=== PATIENT | female | born 1950 | race Caucasian/White ===

== ENCOUNTER 2024-03-25 18:02 | Inpatient (IN) ==
--- NOTE | 2024-03-25 18:56 | XRay Report ---
XR chest 1V portable CLINICAL HISTORY: Dyspnea. COMPARISON STUDY: No previous studies for comparison. FINDINGS: Lung volumes are normal. Lungs are clear. There is no pneumothorax or pleural effusion. The heart is mildly enlarged. Mediastinal contours are normal. There is no evidence for pulmonary edema. IMPRESSION: No acute cardiopulmonary findings. Cardiomegaly. ACT 112: Negative or not required by law. Electronically signed by: Caleb Barry M.D. 03/25/2024 6:55 PM
--- NOTE | 2024-03-25 19:08 | Emergency Department Note ---
Impression & Plan Acute renal failure, SOB (shortness of breath), CHF (congestive heart failure), Acute UTI (urinary tract infection), Sepsis, Acute hyperkalemia, Cellulitis ED Provider Note NAME: GAUDENCIO CROW AGE: 73 SEX: Female INFORMANT: Patient and friends ED PROVIDER(S): Winston Mccormack MD CHIEF COMPLAINT: Shortness of breath PLAN: Disposition: Admitted Outpatient prescription management: none Referral: None MEDICAL DECISION MAKING: Patient presented complaining of shortness of breath. On physical examination she had swelling of the lower extremities and there was concerning for developing cellulitis. Overall the patient was pleasant and in no respiratory stress. She had a slight increased work of breathing. She was doing well with nasal cannula oxygen. Chest imaging showed some cardiomegaly but no evidence of pneumonia. Patient's ECG was nonischemic. Ultrasound imaging of the legs revealed no evidence of DVT. Patient was found to have a marked leukocytosis of 27,000. Procalcitonin was elevated. Lactate was normal. Patient did have a urinalysis concerning for infection. Chemistry panel reveals hyperkalemia and acute renal failure with a creatinine over 8. Patient was treated with IV calcium, insulin, glucose, and bicarbonate. Patient was reassessed. No peaked T waves on ECG. Patient has no known history of this per her accounts. Patient was gently hydrated due to the acute kidney injury. Patient also has findings concerning for CHF with elevated troponin and BNP. She was not aggressively bolused due to this issue and the fact that she has no evidence of septic shock. She was treated with cefepime and vancomycin. Vences catheter was placed. CT imaging of the abdomen pelvis was ordered. Patient will need further evaluation and management in the hospital. [facility], Dr. Cruz. Patient was evaluated in the ER and admitted for further management Care/management discussed with: manager health Level of care consideration(s): After review of the information above and other included data, I feel the patient requires escalation of care to admission Triage Nursing notes: reviewed and agree them. Vital Signs: reviewed and remarkable for borderline tachycardia Additional History obtained from: Patient's friends noted that she is not doing well over the last several days but has had symptoms for several months. Chronic Medical/Social Conditions affecting care: Lack of primary care Prior/ Outside/ External records reviewed: none Differential Diagnosis: Infection, dehydration, metabolic abnormality, hypo/hyperglycemia, electrolyte disturbance, anemia, hypoxia, cardiac sources, intracerebral event, toxicologic, neurologic, as well as other pathologies. Diagnostics, independently interpreted by me: ECG: Twelve-lead ECG reveals sinus tachycardia with a right axis at 103 bpm. No evidence of ST elevation. No peaked T waves. Cardiac Monitoring: Cardiac monitoring ordered by me: The patient was placed on continuous cardiac monitoring and observed. It revealed a normal sinus rhythm at 99 beats per minute without ectopy or evidence of dysrhythmia. Medical decision rules: none Imaging studies: Chest x-ray reveals cardiomegaly without infiltrate. Ultrasound imaging is negative for DVT. I refer you to the EMR for further details. HPI: 73 year old Female arrives for evaluation of SOB. This started a few months ago and is worsening. The patient also notes the following associated symptoms, nausea, upper abd pain, lower leg swelling and pain. The patient has been prescribed no medication for relieving factors. Current pain is rated as 10/10. Tried tylenol without relief. Pt denies LOC, headache, fevers, chills, diaphoresis, visual changes, neck pain, chest pain, vomiting, back pain, melena, hematochezia, urinary symptoms, numbness, lymphadenopathy, rash, or other complaints. . PAST MEDICAL HISTORY: See Below, hypothyroid PAST SURGICAL HISTORY: See Below, SOCIAL HISTORY: See Below, non-smoker HOME MEDICATIONS: See Below ALLERGIES: See Below VITALS: See Below PHYSICAL EXAMINATION: GENERAL: Awake, alert, uncomfortable-appearing, in no distress HENT: Normocephalic, atraumatic. Oropharynx unremarkable. EYES: Normal conjunctiva. Sclera non-icteric. NECK: Inspection normal. Non-tender. Supple. No nuchal rigidity. FROM. No masses. RESPIRATORY: Clear to auscultation. No wheezes. No rales. Normal respiratory effort. CARDIAC: Borderline tachy rate. Normal rhythm. No murmurs. No rubs. Extremities warm and well perfused. Pulses equal. No JVD. GI: Soft, non-distended. No tenderness to palpation. No rebound or guarding. No masses. RECTAL: Deferred. MUSCULOSKELETAL: Atraumatic. Chest examination reveals no tenderness. The back is symmetrical on inspection without obvious abnormality. There is no CVA tenderness to palpation. No joint edema. LOWER EXTREMITIES: Calves are equal size bilaterally and non-tender. 3+ edema. Erythematous discoloration. NEURO: Normal sensorium. No sensory or motor deficits noted. SKIN: No rash or jaundice noted. PROCEDURES: none CRITICAL CARE: I have personally spent 50 minutes of critical care time in the direct management of this patient. This includes bedside care, interpretation of diagnostic studies, and testing, discussion with consultants, patient, and family members, and other required patient management activities. These minutes are in excess of all separately billable procedures. OBSERVATION NOTE: none Past Med/Surg History Problem List (Updated 03/26/24 @ 02:12 by Winston Mccormack MD) Cellulitis (Acute) Acute hyperkalemia (Acute) Sepsis (Acute) Acute UTI (urinary tract infection) (Acute) CHF (congestive heart failure) (Acute) Acute renal failure (Acute) SALLY (acute kidney injury) SOB (shortness of breath) (Acute) Social History Smoking Status: Never smoker Second Hand Exposure: No; Do You Dip or Chew Tobacco: No; Tobacco Cessation Education Requested by Patient: No Hx Alcohol Use: No Hx Substance Use: No Preferred Language: Estonian Communication Ability: Effective 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 Beliefs That Will Affect Care: None Current Living Situation: Alone Other Information That Helps Us Care for You: No Feels Safe at Home: Yes Safety Concerns: Feels Safe At This Time Assistive Devices: Walker Allergies Allergies Allergy/AdvReac Type Severity Reaction Status Date / Time Penicillins Allergy Unknown Verified 03/26/24 00:59 Results & Data (ED) Vital Signs Vital Signs - 24 hr 03/25/24 18:12 03/25/24 18:12 03/25/24 18:12 Temperature 36.9 C Temperature Source Oral Pulse Rate 103 H Pulse Rate [Right Finger] Pulse Rhythm Regular Pulse Rhythm [Right Finger] Pulse Strength Normal Pulse Strength [Right Finger] Respiratory Rate 24 Respiratory Effort / Characteristics Non-Labored Non-Labored Respiratory Depth Normal Normal Respiratory Pattern Regular Blood Pressure 100/64 Blood Pressure [Right Arm] Blood Pressure Mean 76 Blood Pressure Mean [Right Arm] Blood Pressure Position Lying Blood Pressure Position [Right Arm] Pulse Oximetry 100 81 L Oxygen Delivery Method Room Air Nasal Cannula Room Air Nasal Cannula Oxygen Flow Rate 2 0 Sepsis Recent Fever Within 48 Hours No Sepsis New/Unexplained Change in Mental Status N/A Sepsis Action Taken by Nursing No Action Required Oxygen Flow Rate - Titration 2 Pulse Oximetry Post Tiitration 100 03/25/24 18:12 03/25/24 18:19 03/25/24 18:55 Temperature Temperature Source Pulse Rate 102 H 102 H Pulse Rate [Right Finger] 101 H Pulse Rhythm Regular Pulse Rhythm [Right Finger] Regular Pulse Strength Pulse Strength [Right Finger] Normal Respiratory Rate 22 24 Respiratory Effort / Characteristics Non-Labored Respiratory Depth Normal Respiratory Pattern Regular Blood Pressure Blood Pressure [Right Arm] 116/46 L Blood Pressure Mean Blood Pressure Mean [Right Arm] 69 Blood Pressure Position Blood Pressure Position [Right Arm] Lying Pulse Oximetry 99 100 Oxygen Delivery Method Room Air Nasal Cannula Oxygen Flow Rate 2 Sepsis Recent Fever Within 48 Hours Sepsis New/Unexplained Change in Mental Status Sepsis Action Taken by Nursing Oxygen Flow Rate - Titration Pulse Oximetry Post Tiitration 03/25/24 21:19 Temperature Temperature Source Pulse Rate Pulse Rate [Right Finger] 99 H Pulse Rhythm Pulse Rhythm [Right Finger] Regular Pulse Strength Pulse Strength [Right Finger] Normal Respiratory Rate 23 Respiratory Effort / Characteristics Non-Labored Respiratory Depth Normal Respiratory Pattern Regular Blood Pressure Blood Pressure [Right Arm] 130/112 H Blood Pressure Mean Blood Pressure Mean [Right Arm] 118 Blood Pressure Position Blood Pressure Position [Right Arm] Lying Pulse Oximetry 100 Oxygen Delivery Method Room Air Oxygen Flow Rate Sepsis Recent Fever Within 48 Hours Sepsis New/Unexplained Change in Mental Status Sepsis Action Taken by Nursing Oxygen Flow Rate - Titration Pulse Oximetry Post Tiitration Laboratory Data 03/25/24 19:23 03/26/24 01:09 Lab Results 03/25/24 03/25/24 03/25/24 Range/Units 19:05 19:21 19:23 WBC 27.81 H (4.8-10.8) K/ul RBC 3.14 L (4.20-5.40) M/uL Hgb 9.6 L (12.0-16.0) g/dl Hct 31.7 L (37.0-47.0) % MCV 101.0 H (80.0-100.0) fL MCH 30.6 (25.0-34.0) pg MCHC 30.3 L (32.0-36.0) g/dL RDW Std Deviation 57.9 H (36.4-46.3) fL RDW Coeff of [place] 15.6 H (11.5-14.5) % Plt Count 191 (130-400) K/uL MPV 10.3 (9.4-12.4) fL Immature Gran % (Auto) 1.1 % Neut % (Auto) 72.5 % Lymph % (Auto) 0.9 % [place] % (Auto) 25.2 % Eos % (Auto) 0.0 % Baso % (Auto) 0.3 % Neut # (Auto) 20.16 H (1.40-6.50) K/uL Lymph # (Auto) 0.25 L (1.20-3.40) K/uL [place] # (Auto) 7.01 H (0.11-0.59) K/uL Eos # (Auto) 0.01 (0.00-0.50) K/uL Baso # (Auto) 0.07 (0.00-0.20) K/uL Immature Gran # (Auto) 0.31 H (0.01-0.20) K/uL Sodium 136 (136-145) mmol/L Potassium 6.9 H* (3.5-5.1) mmol/L Chloride 114 H (98-107) mmol/L Carbon Dioxide 10 L (21-32) mmol/L Anion Gap 12 H (3-11) BUN 153 H (6-23) mg/dl Creatinine 8.45 H* (0.6-1.2) mg/dl Est Cr Clr Drug Dosing 7.4 ml/min Est GFR ( Amer) 4.8 ml/min Est GFR (Non-Af Amer) 4.2 ml/min BUN/Creatinine Ratio 18.1 (10-20) Glucose 133 H (70-99(Fasting)) mg/dl Lactate 1.5 (0.4-2.0) mmol/L Calcium 8.5 L (8.6-10.3) mg/dl Magnesium 1.3 L (1.7-2.4) mg/dl Total Bilirubin 0.7 (0.2-1.0) mg/dl AST 7 L (13-39) U/L ALT 6 L (7-52) U/L Alkaline Phosphatase 49 (34-104) U/L Troponin I High Sens 16.2 H (0-14) pg/ml B-Natriuretic Peptide 104 H (0-100) pg/ml Total Protein 7.0 (6.0-8.3) gm/dl Albumin 3.6 (3.4-5.0) gm/dl Globulin 3.4 (2.5-4.0) gm/dl Albumin/Globulin Ratio 1.1 (0.9-2) Procalcitonin 1.07 H (0-0.5) ng/ml Adenovirus (PCR) Not Detected (NotDetected) B. pertussis DNA (PCR) Not Detected (NotDetected) B.parapertussis DNA PCR Not Detected (NotDetected) C. pneumoniae DNA (PCR) Not Detected (NotDetected) Coronavirus OC43 (PCR) Not Detected (NotDetected) Coronavirus HKU1 (PCR) Not Detected (NotDetected) Coronavirus 229E (PCR) Not Detected (NotDetected) SARS-CoV-2 (PCR) Not Detected (NotDetected) Coronavirus NL63 (PCR) Not Detected (NotDetected) Human Metapneumovir PCR Not Detected (NotDetected) Influenza Type A (PCR) Not Detected (NotDetected) Influenza Type B (PCR) Not Detected (NotDetected) M. pneumoniae (PCR) Not Detected (NotDetected) Parainfluenza 1 (PCR) Not Detected (NotDetected) Parainfluenza 2 (PCR) Not Detected (NotDetected) Parainfluenza 3 (PCR) Not Detected (NotDetected) Parainfluenza 4 (PCR) Not Detected (NotDetected) RSV (PCR) Not Detected (NotDetected) Entero/Rhino (PCR) Not Detected (NotDetected) Administered Medications Sodium Bicarbonate 150 meq/ (Dextrose) 1,150 mls @ 125 mls/hr IV .[id number] ARMANDO Stop: 04/24/24 21:59 Last Admin: 03/25/24 22:50 Dose: 125 mls/hr Documented By: SHB Aztreonam 2,000 mg/ Dextrose 100 mls @ 100 mls/hr IV ONE ONE Stop: 03/26/24 02:29 Last Admin: 03/26/24 01:46 Dose: 100 mls/hr Documented By: KAILEY Discontinued Medications Dextrose (Dextrose 50% 50 Ml Syringe) 50 ml IV NOW ONE Stop: 03/25/24 21:02 Last Admin: 03/25/24 21:50 Dose: 50 ml Documented By: ZAHIDA Acetaminophen (Ofirmev) 1,000 mg in 100 mls @ 400 mls/hr IV NOW STA Stop: 03/25/24 19:23 Last Infusion: 03/25/24 20:01 Dose: Infused Documented By: Admin: 03/25/24 19:15 Dose: 400 mls/hr Documented By: THAI Cefepime HCl (Maxipime) 2,000 mg in 20 mls @ 5 mls/min IV NOW STA; Protocol Stop: 03/25/24 20:17 Last Admin: 03/25/24 21:13 Dose: 5 mls/min Documented By: JOSUÉ Vancomycin HCl 2,750 mg/ (Sodium Chloride) 555 mls @ 200 mls/hr IV NOW ONE Stop: 03/25/24 23:00 Last Infusion: 03/26/24 00:04 Dose: Infused Documented By: Admin: 03/25/24 21:17 Dose: 200 mls/hr Documented By: JOSUÉ Calcium Gluconate () 1,000 mg in 60 mls @ 240 mls/hr IV NOW STA Stop: 03/25/24 21:15 Last Infusion: 03/25/24 22:19 Dose: Infused Documented By: Admin: 03/25/24 21:52 Dose: 240 mls/hr Documented By: ZAHIDA Ertapenem 500 mg/ Syringe 5 mls @ 2 mls/min IV Q[facility]H [facility] Stop: 04/02/24 00:33 Last Admin: 03/26/24 01:36 Dose: Not Given Documented By: KAILEY Insulin Human Regular (Novolin-R Insulin Per Unit Charge) 10 units IV NOW STA Stop: 03/25/24 21:02 Last Admin: 03/25/24 21:44 Dose: 10 units Documented By: ZAHIDA Co-signed By: THAI Miscellaneous Information (Patient's Allergy Info Needs Entered) 1 each N/A ONE STA Stop: 03/25/24 23:37 Last Admin: 03/26/24 00:37 Dose: 1 each Documented By: KAILEY Sodium Bicarbonate (Sodium Bicarb 8.4% Inj 50 Meq/50 Ml Syr) 50 meq IV NOW STA Stop: 03/25/24 21:02 Last Admin: 03/25/24 21:50 Dose: 50 meq Documented By: ZAHIDA Sodium Zirconium Cyclosilicate (Sodium Zirconium Cyclosilicate 10 Gm Packet) 10 gm PO NOW STA Stop: 03/25/24 21:59 Last Admin: 03/25/24 22:20 Dose: 10 gm Documented By: [facility] Imaging Data Radiologist's Impression: Chest X-Ray 03/25/24 18:13 XR chest 1V portable CLINICAL HISTORY: Dyspnea. COMPARISON STUDY: No previous studies for comparison. FINDINGS: Lung volumes are normal. Lungs are clear. There is no pneumothorax or pleural effusion. The heart is mildly enlarged. Mediastinal contours are normal. There is no evidence for pulmonary edema. IMPRESSION: No acute cardiopulmonary findings. Cardiomegaly. ACT 112: Negative or not required by law. Electronically signed by: Caleb Barry M.D. 03/25/2024 6:55 PM Venous Doppler Study 03/25/24 19:10 Exam(s): US VENOUS BILATERAL LOWER EXTREMITIES EXAM: US Duplex Bilateral Lower Extremities Veins CLINICAL HISTORY: Reason for exam: severe swelling, SOB. TECHNIQUE: Real-time duplex ultrasound scan of the bilateral lower extremity veins integrating B-mode two-dimensional vascular structure, Doppler spectral analysis, color flow Doppler imaging and compression. COMPARISON: No relevant prior studies available. FINDINGS: Right deep veins: Unremarkable. The visualized deep veins of the right lower extremity are compressible with color flow. No visualized thrombus. Right superficial veins: Unremarkable. Left deep veins: Unremarkable. The visualized deep veins of the left lower extremity are compressible with color flow. No visualized thrombus. Left superficial veins: Unremarkable. Soft tissues: No acute findings. IMPRESSION: No DVT within the bilateral lower extremities. Electronically signed by: Hebert Harley MD 03/25/24 22:56 PM Abdomen/Pelvis CT 03/25/24 21:03 Exam(s): CT ABDOMEN + PELVIS Without Contrast EXAM: CT Abdomen and Pelvis Without Intravenous Contrast CLINICAL HISTORY: Reason for exam: ARF. TECHNIQUE: Axial computed tomography images of the abdomen and pelvis without intravenous contrast. CTDI is 36.67 mGy and DLP is 1660.69 mGy-cm. Automated exposure control was utilized for the study. A dose lowering technique was utilized adhering to the principles of ALARA. COMPARISON: No relevant prior studies available. FINDINGS: ABDOMEN: Liver: Unremarkable. Gallbladder and bile ducts: Unremarkable. Pancreas: Unremarkable. Spleen: Unremarkable. Adrenals: Left adrenal adenoma measuring 2.6 x 1.8 cm. Right adrenal is unremarkable. Kidneys and ureters: Nonobstructing nephrolithiasis bilaterally. No ureteral stone or obstructive uropathy. Stomach and bowel: Unremarkable. PELVIS: Appendix: No findings to suggest acute appendicitis. Bladder: Vences catheter within the bladder. Bladder is decompressed. Reproductive: Unremarkable as visualized. ABDOMEN and PELVIS: Intraperitoneal space: Unremarkable. No free air. No significant fluid collection. Bones/joints: Advanced degenerative changes within the lumbar spine. Soft tissues: Fat-containing umbilical hernia. Vasculature: Aortobiiliac atherosclerotic calcifications. Lymph nodes: Unremarkable. IMPRESSION: 1. Nonobstructing nephrolithiasis bilaterally. No ureteral stone or obstructive uropathy. 2. Vences catheter within the bladder. Bladder is decompressed. 3. Fat-containing umbilical hernia. Electronically signed by: Hebert Harley MD 03/26/24 00:25 AM Discharge Plan Visit Data Chief Complaint: Shortness of Breath/Dyspnea ED Provider: Winston Mccormack Discharge Problem: Acute renal failure, SOB (shortness of breath), CHF (congestive heart failure), Acute UTI (urinary tract infection), Sepsis, Acute hyperkalemia, Cellulitis Patient Disposition: Admitted As Inpatient Discharge Instructions Interventions: ED Discharge Assessment Last Done: 03/25/24 20:42
[2024-03-25] MEDS: ACETAMINOPHEN 1,000 MG/100 ML VIAL IV STA (19:15)
[2024-03-25 20:11] LABS: Hematocrit (blood only) 31.7 % (37.0-47.0); Hemoglobin 9.6 g/dl (12.0-16.0); Mean Corpuscular Hemoglobin 30.6 pg (25.0-34.0); Mean Corpuscular Hgb Conc 30.3 g/dL (32.0-36.0); Mean Platelet Volume 10.3 fL (9.4-12.4); Platelet Count 191 K/uL (130-400); RDW Coefficient of Variation 15.6 % (11.5-14.5); RDW Standard Deviation 57.9 fL (36.4-46.3); Red Blood Count 3.14 M/uL (4.20-5.40); White Blood Count 27.81 K/ul (4.8-10.8)
[2024-03-25 20:13] LABS: Adenovirus PCR Not Detected (NotDetected); Bordetella parapertussis PCR Not Detected (NotDetected); Bordetella pertussis PCR Not Detected (NotDetected); Chlamydia pneumoniae PCR Not Detected (NotDetected); Coronavirus 229E PCR Not Detected (NotDetected); Coronavirus CoV-2 (COVID19)PCR Not Detected (NotDetected); Coronavirus HKU1 PCR Not Detected (NotDetected); Coronavirus NL63 PCR Not Detected (NotDetected); Coronavirus OC43PCR Not Detected (NotDetected); Human Metapneumovirus PCR Not Detected (NotDetected); Influenza A PCR Not Detected (NotDetected); Influenza B PCR Not Detected (NotDetected); Mycoplasma pneumoniae PCR Not Detected (NotDetected); Parainfluenza Virus 1 PCR Not Detected (NotDetected); Parainfluenza Virus 2 PCR Not Detected (NotDetected); Parainfluenza Virus 3 PCR Not Detected (NotDetected); Parainfluenza Virus 4 PCR Not Detected (NotDetected); Respiratory Syncytial VirusPCR Not Detected (NotDetected); Rhinovirus/Enterovirus PCR Not Detected (NotDetected)
[2024-03-25] MEDS ORDERED: VANCOMYCIN CONSULT ACTIVE PRN (20:14)
[2024-03-25 20:28] LABS: Basophils # (auto) 0.07 K/uL (0.00-0.20); Basophils % (auto) 0.3 %; Eosinophils # (auto) 0.01 K/uL (0.00-0.50); Immature Granulocytes # (auto) 0.31 K/uL (0.01-0.20); Immature Granulocytes % (auto) 1.1 %; Lymphocytes # (auto) 0.25 K/uL (1.20-3.40); Lymphocytes % (auto) 0.9 %; Monocytes # (auto) 7.01 K/uL (0.11-0.59); Monocytes % (auto) 25.2 %; Neutrophils # (auto) 20.16 K/uL (1.40-6.50); Neutrophils % (auto) 72.5 %
[2024-03-25 20:41] LABS: Albumin Globulin Ratio 1.1 (0.9-2); Albumin Level 3.6 gm/dl (3.4-5.0); Bilirubin,Total 0.7 mg/dl (0.2-1.0); Calcium 8.5 mg/dl (8.6-10.3); Creatinine Clr Calc Pharmacy 7.4 ml/min; Est GFR (African American) 4.8 ml/min; Est GFR (Non-African American) 4.2 ml/min; Globulin 3.4 gm/dl (2.5-4.0); Magnesium 1.3 mg/dl (1.7-2.4); Potassium 6.9 mmol/L (3.5-5.1); Troponin I High Sensitivity 16.2 pg/ml (0-14)
[2024-03-25 20:47] LABS: BUN Creatinine Ratio 18.1 (10-20)
[2024-03-25] MEDS: CEFEPIME 2,000 MG/20 ML VIAL IV STA (21:13)
[2024-03-25] MEDS: VANCOMYCIN HCL 2,750 MG in SODIUM CHLORIDE 0.9% 500 ML IV ONE (21:17)
[2024-03-25] MEDS: NovoLIN-R INSULIN PER UNIT CHARGE IV STA (21:44)
[2024-03-25] MEDS: DEXTROSE 50% 50 ML SYRINGE IV ONE (21:50)
[2024-03-25] MEDS: SODIUM BICARB 8.4% INJ 50 MEQ/50 ML SYR IV STA (21:50)
[2024-03-25] MEDS: CALCIUM GLUCONATE 1,000 MG/60 ML BAG IV STA (21:52)
[2024-03-25] MEDS: SODIUM ZIRCONIUM CYCLOSILICATE 10 GM PACKET PO STA (22:20)
--- NOTE | 2024-03-25 22:37 | History & Physical Report ---
Date of Service March 25, 2024 Assessment & Plan (1) SALLY (acute kidney injury): Plan: 73-year-old female with past medical history significant for morbid obesity, hypertension and hypothyroidism comes because of shortness of breath and lower extremity edema and found to have SALLY and hyperkalemia. Patient states since last 1 months she is getting short of breath which is progressively worsening. And last 6 months having lower extremity edema and also pain in the legs. She is living with her sister for last 14 years. She ambulates with a cane and sister thinks she may need walker. She goes to primary care doctor once a year for regular checkup and medication refills but last time she saw PCP was more than a year ago. Sister states she is on levothyroxine and olmesartan and they do not know the doses but sister says she can call tomorrow to give the doses. And patient uses Tylenol for pain and per her sister patient uses Tums frequently but does not use any other medications. Patient is alert and oriented. In the ER her was oxygen saturation varying low 90s and 80s and on 2 L she saturating okay. Seems comfortable. She always have headaches. She is feeling lightheaded lately. Vision is okay. No earache or runny nose or sore t hroat. No cough. Afebrile. No difficulty swallowing. Denies any chest pain. Was nauseous earlier. No abdominal pain. Normal bowel movements. Micturating okay per patient. Denies any blood in the urine. Denies blood in the stools. SALLY Creatinine 8.4 BUN 153 Mental status okay We do not have baseline labs Patient on olmesartan which will be held patient states she is micturating ok s/p jenkins Will follow CT abdomen pelvis Started on fluids D5 water with 150 meq of sodium bicarb with rate of 125 mill per hour Recheck labs Follow UA Nephro consulted and notified close monitor in PCU Hyperkalemia Potassium 6.9 EKG okay Received insulin and dextrose and calcium gluconate in the ER Starting on bicarb drip as above Starting on Lokelma Close monitoring telemetry Follow repeat labs closely - received another dose of insulin , dextrose and amandeep gluconate when 1am labs showed k 6.6 Dialysis or further management per nephrology Metabolic acidosis Mostly from SALLY Will follow VBG Started on bicarb drip Follow labs. Shortness of breath Hypoxia Chest x-ray looks okay. Respiratory bio fire negative Possible from current illness and obesity Will follow lower extremity Doppler We will follow echo can consider v/q scan Continue oxygen supplementation Possible lower EXTR cellulitis and UTI Leukocytosis with WBC of 27. Procalcitonin 1.07 Received Vanco in the ER Will continue with Dapto and Azactam(PCN allergy) Follow the cultures Follow the response Lower EXTR edema Will follow-up lower EXTR Doppler Will follow echo Hypertension Seems on olmesartan which will be held for SALLY Will place on labetalol as needed and monitor Hypothyroidism On Synthyroid Sister says she will call tomorrow and let us know the dosage Will check TSH Morbid obesity Possible underlying sleep apnea Sleep study as outpatient Nocturnal pulse ox study Anemia Hemoglobin 9.6 MCV 101 Follow-up stool for Hemoccult Iron studies Vitamin B12 folate levels Follow repeat labs Hypomagnesia Will replace gave iv mag 1gm x 2 placed on mag oxide for 5days follow labs MIld elevation of troponin Mostly from demand ischemia and SALLY Will follow serial enzymes and echo DVT prophylaxis SCDs for now If no procedure planned will place on heparin subcu Disposition Telemetry CODE STATUS full code as per my discussion with the patient History of Present Illness Chief Complaint: Shortness of breath Primary Care Provider: Tami Storey 73-year-old female with past medical history significant for morbid obesity, hypertension and hypothyroidism comes because of shortness of breath and lower extremity edema and found to have SALLY and hyperkalemia. Patient states since last 1 months she is getting short of breath which is progressively worsening. And last 6 months having lower extremity edema and also pain in the legs. She is living with her sister for last 14 years. She ambulates with a cane and sister thinks she may need walker. She goes to primary care doctor once a year for regular checkup and medication refills but last time she saw PCP was more than a year ago. Sister states she is on levothyroxine and olmesartan and they do not know the doses but sister says she can call tomorrow to give the doses. And patient uses Tylenol for pain and per her sister patient uses Tums frequently but does not use any other medications. Patient is alert and oriented. In the ER her was oxygen saturation varying low 90s and 80s and on 2 L she saturating okay. Seems comfortable. She always have headaches. She is feeling lightheaded lately. Vision is okay. No earache or runny nose or sore throat. No cough. Afebrile. No difficulty swallowing. Denies any chest pain. Was nauseous earlier. No abdominal pain. Normal bowel movements. Micturating okay per patient. Denies any blood in the urine. Denies blood in the stools. Past medical history. As mentioned above Past surgical history. Appendectomy and tonsillectomy Social history. Quit smoking 22 years ago. Smoked 2 packs a day for more than 20 years. Quit alcohol 22 years ago. Family history. Father had heart disease. Disease from thoracic aneurysm. Mother had bladder cancer. Allergies Allergy/AdvReac Type Severity Reaction Status Date / Time NSAIDS (Non-Steroidal Allergy Unknown Unknown - Unverified 03/26/24 08:25 Anti-Inflamma On file w/ [facility] pharmacy Penicillins Allergy Unknown Verified 03/26/24 08:25 Home Medications Medication Instructions Recorded Confirmed Type levothyroxine 88 mcg tablet 88 mcg PO DAILY 03/26/24 03/26/24 History olmesartan 40 mg tablet 40 mg PO DAILY 03/26/24 03/26/24 History Past Med/Surg History Problem List (Updated 03/26/24 @ 02:12 by Winston Mccormack MD) Cellulitis (Acute) Acute hyperkalemia (Acute) Sepsis (Acute) Acute UTI (urinary tract infection) (Acute) CHF (congestive heart failure) (Acute) Acute renal failure (Acute) SALLY (acute kidney injury) SOB (shortness of breath) (Acute) Social History Smoking Status: Never smoker Second Hand Exposure: No; Do You Dip or Chew Tobacco: No; Tobacco Cessation Education Requested by Patient: No Hx Alcohol Use: No Hx Substance Use: No Preferred Language: Indian Communication Ability: Effective [employer] Required: No Beliefs That Will Affect Care: None Current Living Situation: Alone Other Information That Helps Us Care for You: No Feels Safe at Home: Yes Safety Concerns: Feels Safe At This Time Assistive Devices: Walker Review of Systems Review of Systems: All systems reviewed & are unremarkable except as noted in HPI & below Physical Exam Physical Exam: General- Not in acute distress Head- atraumatic Eyes- PERRL. ENT- oropharynx clear Neck- supple, no JVD Lungs- clear to auscultation , no wheezing or crackles Heart- regular rate and rhythm; no murmur, no gallop. Abdomen- normal bowel sounds, soft, nontender, no distension Extremities- b/l gross lower extremity edema present with distal erythema and superficial skin ulcers. Neuro- alert, oriented x 3; PERRL, no facial palsy; no dysarthria; moves extremities. Results & Data Results & Data Vital Signs (Past 12 Hours) Vital Signs Temp Pulse Pulse Resp BP BP Pulse Ox 03/25/24 22:09 108 H 03/25/24 21:19 99 H 23 130/112 H 100 03/25/24 18:55 102 H 24 100 03/25/24 18:19 102 H 03/25/24 18:12 101 H 22 116/46 L 99 03/25/24 18:12 81 L 03/25/24 18:12 36.9 C 103 H 24 100/64 100 03/25/24 18:12 O2 Del Method O2 Flow Rate 03/25/24 22:09 03/25/24 21:19 Room Air 03/25/24 18:55 Nasal Cannula 2 03/25/24 18:19 03/25/24 18:12 Room Air 03/25/24 18:12 Room Air, Nasal Cannula 0 03/25/24 18:12 Nasal Cannula 2 03/25/24 18:12 Room Air Diagnostic Findings Laboratory Results WBC 27.81 K/ul (4.8-10.8) H 03/25/24 19:23 RBC 3.14 M/uL (4.20-5.40) L 03/25/24 19:23 Hgb 9.6 g/dl (12.0-16.0) L 03/25/24 19:23 Hct 31.7 % (37.0-47.0) L 03/25/24 19:23 MCV 101.0 fL (80.0-100.0) H 03/25/24 19:23 MCH 30.6 pg (25.0-34.0) 03/25/24 19: MCHC 30.3 g/dL (32.0-36.0) L 03/25/24 19:23 RDW Std Deviation 57.9 fL (36.4-46.3) H 03/25/24 19:23 RDW Coeff of Morro 15.6 % (11.5-14.5) H 03/25/24 19:23 Plt Count 191 K/uL (130-400) 03/25/24 19:23 MPV 10.3 fL (9.4-12.4) 03/25/24 19:23 Immature Gran % (Auto) 1.1 % 03/25/24 19:23 Neut % (Auto) 72.5 % 03/25/24 19:23 Lymph % (Auto) 0.9 % 03/25/24 19:23 Wagoner % (Auto) 25.2 % 03/25/24 19:23 Eos % (Auto) 0.0 % 03/25/24 19:23 Baso % (Auto) 0.3 % 03/25/24 19:23 Neut # (Auto) 20.16 K/uL (1.40-6.50) H 03/25/24 19:23 Lymph # (Auto) 0.25 K/uL (1.20-3.40) L 03/25/24 19:23 Wagoner # (Auto) 7.01 K/uL (0.11-0.59) H 03/25/24 19:23 Eos # (Auto) 0.01 K/uL (0.00-0.50) 03/25/24 19:23 Baso # (Auto) 0.07 K/uL (0.00-0.20) 03/25/24 19:23 Immature Gran # (Auto) 0.31 K/uL (0.01-0.20) H 03/25/24 19:23 Sodium 136 mmol/L (136-145) 03/25/24 19:23 Potassium 6.9 mmol/L (3.5-5.1) H* 03/25/24 19:23 Chloride 114 mmol/L (98-107) H 03/25/24 19:23 Carbon Dioxide 10 mmol/L (21-32) L 03/25/24 19:23 Anion Gap 12 (3-11) H 03/25/24 19:23 BUN 153 mg/dl (6-23) H 03/25/24 19:23 Creatinine 8.45 mg/dl (0.6-1.2) H* 03/25/24 19:23 Est Cr Clr Drug Dosing 7.4 ml/min 03/25/24 19:23 Est GFR ( Amer) 4.8 ml/min 03/25/24 19:23 Est GFR (Non-Af Amer) 4.2 ml/min 03/25/24 19:23 BUN/Creatinine Ratio 18.1 (10-20) 03/25/24 19:23 Glucose 133 mg/dl (70-99(Fasting)) H 03/25/24 19:23 Lactate 1.5 mmol/L (0.4-2.0) 03/25/24 19:21 Calcium 8.5 mg/dl (8.6-10.3) L 03/25/24 19:23 Magnesium 1.3 mg/dl (1.7-2.4) L 03/25/24 19:23 Total Bilirubin 0.7 mg/dl (0.2-1.0) 03/25/24 19:23 AST 7 U/L (13-39) L 03/25/24 19:23 ALT 6 U/L (7-52) L 03/25/24 19:23 Alkaline Phosphatase 49 U/L (34-104) 03/25/24 19:23 Troponin I High Sens 16.2 pg/ml (0-14) H 03/25/24 19:23 B-Natriuretic Peptide 104 pg/ml (0-100) H 03/25/24 19:23 Total Protein 7.0 gm/dl (6.0-8.3) 03/25/24 19:23 Albumin 3.6 gm/dl (3.4-5.0) 03/25/24 19:23 Globulin 3.4 gm/dl (2.5-4.0) 03/25/24 19:23 Albumin/Globulin Ratio 1.1 (0.9-2) 03/25/24 19:23 Procalcitonin 1.07 ng/ml (0-0.5) H 03/25/24 19:21 Adenovirus (PCR) Not Detected (NotDetected) 03/25/24 19:05 B. pertussis DNA (PCR) Not Detected (NotDetected) 03/25/24 19:05 B.parapertussis DNA PCR Not Detected (NotDetected) 03/25/24 19:05 C. pneumoniae DNA (PCR) Not Detected (NotDetected) 03/25/24 19:05 Coronavirus OC43 (PCR) Not Detected (NotDetected) 03/25/24 19:05 Coronavirus HKU1 (PCR) Not Detected (NotDetected) 03/25/24 19:05 Coronavirus 229E (PCR) Not Detected (NotDetected) 03/25/24 19:05 SARS-CoV-2 (PCR) Not Detected (NotDetected) 03/25/24 19:05 Coronavirus NL63 (PCR) Not Detected (NotDetected) 03/25/24 19:05 Human Metapneumovir PCR Not Detected (NotDetected) 03/25/24 19:05 Influenza Type A (PCR) Not Detected (NotDetected) 03/25/24 19:05 Influenza Type B (PCR) Not Detected (NotDetected) 03/25/24 19:05 M. pneumoniae (PCR) Not Detected (NotDetected) 03/25/24 19:05 Parainfluenza 1 (PCR) Not Detected (NotDetected) 03/25/24 19:05 Parainfluenza 2 (PCR) Not Detected (NotDetected) 03/25/24 19:05 Parainfluenza 3 (PCR) Not Detected (NotDetected) 03/25/24 19:05 Parainfluenza 4 (PCR) Not Detected (NotDetected) 03/25/24 19:05 RSV (PCR) Not Detected (NotDetected) 03/25/24 19:05 Entero/Rhino (PCR) Not Detected (NotDetected) 03/25/24 19:05 Impressions Chest X-Ray 03/25/24 18:13 XR chest 1V portable CLINICAL HISTORY: Dyspnea. COMPARISON STUDY: No previous studies for comparison. FINDINGS: Lung volumes are normal. Lungs are clear. There is no pneumothorax or pleural effusion. The heart is mildly enlarged. Mediastinal contours are normal. There is no evidence for pulmonary edema. IMPRESSION: No acute cardiopulmonary findings. Cardiomegaly. ACT 112: Negative or not required by law. Electronically signed by: Caleb Barry M.D. 03/25/2024 6:55 PM ECG Additional Comments: ECG. Sinus tachycardia rate of 103. No acute ST changes seen. Code Status & VTE Plan VTE Prophylaxis Plan VTE Prophylaxis will be ordered: Yes
[2024-03-25] MEDS: SODIUM BICARBONATE 8.4% 150 MEQ in DEXTROSE 5% 1,000 ML IV SCH (22:50)
--- NOTE | 2024-03-25 22:57 | Ultrasound Report ---
Exam(s): US VENOUS BILATERAL LOWER EXTREMITIES EXAM: US Duplex Bilateral Lower Extremities Veins CLINICAL HISTORY: Reason for exam: severe swelling, SOB. TECHNIQUE: Real-time duplex ultrasound scan of the bilateral lower extremity veins integrating B-mode two-dimensional vascular structure, Doppler spectral analysis, color flow Doppler imaging and compression. COMPARISON: No relevant prior studies available. FINDINGS: Right deep veins: Unremarkable. The visualized deep veins of the right lower extremity are compressible with color flow. No visualized thrombus. Right superficial veins: Unremarkable. Left deep veins: Unremarkable. The visualized deep veins of the left lower extremity are compressible with color flow. No visualized thrombus. Left superficial veins: Unremarkable. Soft tissues: No acute findings. IMPRESSION: No DVT within the bilateral lower extremities. Electronically signed by: Hebert Harley MD 03/25/24 22:56 PM
[2024-03-25 23:58] LABS: Appearance Urine Turbid (Clear); Bacteria Urine Automated 4+ (None Seen); Bilirubin Urine Negative (Negative); Blood Urine 3+ (Negative); Color Urine Yellow; Epithelial Cell Urine Auto 0-2 /hpf (0-2); Glucose Urine UA Negative (Negative); Ketones Urine Trace (Negative); Leukocyte Esterase Urine 3+ (Negative); Nitrite Urine Negative (Negative); Protein Urine 2+ (Negative); RBC Urine Automated >20 /hpf (0-2); Specific Gravity Urine 1.017 (1.000-1.030); Urobilinogen Urine Negative (Negative); WBC Urine Automated >50 /hpf (0-5)
--- NOTE | 2024-03-26 00:26 | CT Scan Report ---
Exam(s): CT ABDOMEN + PELVIS Without Contrast EXAM: CT Abdomen and Pelvis Without Intravenous Contrast CLINICAL HISTORY: Reason for exam: ARF. TECHNIQUE: Axial computed tomography images of the abdomen and pelvis without intravenous contrast. CTDI is 36.67 mGy and DLP is 1660.69 mGy-cm. Automated exposure control was utilized for the study. A dose lowering technique was utilized adhering to the principles of ALARA. COMPARISON: No relevant prior studies available. FINDINGS: ABDOMEN: Liver: Unremarkable. Gallbladder and bile ducts: Unremarkable. Pancreas: Unremarkable. Spleen: Unremarkable. Adrenals: Left adrenal adenoma measuring 2.6 x 1.8 cm. Right adrenal is unremarkable. Kidneys and ureters: Nonobstructing nephrolithiasis bilaterally. No ureteral stone or obstructive uropathy. Stomach and bowel: Unremarkable. PELVIS: Appendix: No findings to suggest acute appendicitis. Bladder: Vences catheter within the bladder. Bladder is decompressed. Reproductive: Unremarkable as visualized. ABDOMEN and PELVIS: Intraperitoneal space: Unremarkable. No free air. No significant fluid collection. Bones/joints: Advanced degenerative changes within the lumbar spine. Soft tissues: Fat-containing umbilical hernia. Vasculature: Aortobiiliac atherosclerotic calcifications. Lymph nodes: Unremarkable. IMPRESSION: 1. Nonobstructing nephrolithiasis bilaterally. No ureteral stone or obstructive uropathy. 2. Vences catheter within the bladder. Bladder is decompressed. 3. Fat-containing umbilical hernia. Electronically signed by: Hebert Harley MD 03/26/24 00:25 AM
[2024-03-26] MEDS ORDERED: NITROGLYCERIN SL 0.4 MG/TAB TAB SL PRN (00:34)
[2024-03-26] MEDS ORDERED: POLYETHYLENE (MIRALAX) 17 GM PACK PO PRN (00:34)
[2024-03-26] MEDS: Patient's ALLERGY Info needs ENTERED STA (00:37)
[2024-03-26] MEDS: ERTAPENEM SODIUM 500 MG in SYRINGE 0 ML IV SCH (01:36)
[2024-03-26] MEDS: AZTREONAM 2,000 MG in DEXTROSE 5% MINI-B 100 ML IV ONE (01:46)
[2024-03-26 01:56] LABS: Calcium 8.4 mg/dl (8.6-10.3); Creatinine Clr Calc Pharmacy 8.1 ml/min; Est GFR (African American) 5.4 ml/min; Est GFR (Non-African American) 4.6 ml/min; Potassium 6.6 mmol/L (3.5-5.1)
[2024-03-26 02:06] LABS: BUN Creatinine Ratio 19.9 (10-20)
[2024-03-26] MEDS: INSULIN HUMAN REGULAR PER UNIT 10 UNITS in SYRINGE 9.9 ML IV ONE (02:28)
[2024-03-26] MEDS: DEXTROSE 50% 50 ML SYRINGE IV STA (02:29)
[2024-03-26] MEDS: CALCIUM GLUCONATE 1,000 MG/60 ML BAG IV STA (02:29)
[2024-03-26 02:36] LABS: Base Excess VBG -14.4 mEq/L; HCO3 VBG 13 mmol/L; Oxygen Saturation VBG < 60.0 %; PCO2 VBG 32 mmHg (38-50); PO2 VBG 22 mmHg
[2024-03-26] MEDS: MAGNESIUM SULFATE / D5W 1 GM/100 ML BAG IV SCH ×2 (02:49→09:47)
[2024-03-26] MEDS: SODIUM ZIRCONIUM CYCLOSILICATE 10 GM PACKET PO SCH (05:53)
[2024-03-26 06:18] LABS: Hematocrit (blood only) 25.6 % (37.0-47.0); Hemoglobin 8.2 g/dl (12.0-16.0); Mean Corpuscular Hemoglobin 31.1 pg (25.0-34.0); Mean Platelet Volume 10.5 fL (9.4-12.4); Platelet Count 174 K/uL (130-400); RDW Coefficient of Variation 14.9 % (11.5-14.5); RDW Standard Deviation 53.1 fL (36.4-46.3); Red Blood Count 2.64 M/uL (4.20-5.40); White Blood Count 25.41 K/ul (4.8-10.8)
[2024-03-26 06:33] LABS: Calcium 8.3 mg/dl (8.6-10.3); Magnesium 1.6 mg/dl (1.7-2.4); Potassium 5.9 mmol/L (3.5-5.1)
[2024-03-26 06:44] LABS: Basophils # (auto) 0.08 K/uL (0.00-0.20); Basophils % (auto) 0.3 %; Eosinophils # (auto) 0.06 K/uL (0.00-0.50); Eosinophils % (auto) 0.2 %; Immature Granulocytes # (auto) 0.17 K/uL (0.01-0.20); Immature Granulocytes % (auto) 0.7 %; Lymphocytes # (auto) 0.87 K/uL (1.20-3.40); Lymphocytes % (auto) 3.4 %; Monocytes # (auto) 6.83 K/uL (0.11-0.59); Monocytes % (auto) 26.9 %; Neutrophils % (auto) 68.5 %; RBC Morphology Unremarkable
[2024-03-26 06:54] LABS: Creatinine Clr Calc Pharmacy 8.4 ml/min; Est GFR (African American) 5.6 ml/min; Est GFR (Non-African American) 4.8 ml/min; Thyroid Stimulating Hormone 1.54 uIu/ml (0.300-4.500); Troponin I High Sensitivity 22.9 pg/ml (0-14); Uric Acid 10.3 mg/dl (2.6-7.2)
[2024-03-26 07:00] LABS: Folate (Folic Acid),Ser orPlas 5.88 ng/ml (>5.38)
[2024-03-26 08:00] LABS: Estimated Average Glucose 111 mg/dl; Hemoglobin A1C 5.5 % (4.5-5.6)
[2024-03-26] MEDS: DAPTOmycin 400 MG in SYRINGE 0 ML IV SCH (08:29)
[2024-03-26] MEDS: SODIUM CHLORIDE 0.9% 1,000 ML IV SCH ×2 (08:29→13:30)
[2024-03-26] MEDS: MAGNESIUM OXIDE 400 MG TAB PO SCH (09:32)
--- NOTE | 2024-03-26 10:16 | Hospitalist Progress Note ---
Date of Service March 26, 2024 Assessment & Plan (1) Septic shock: (2) SALLY (acute kidney injury): (3) Bilateral lower leg cellulitis: (4) Acute UTI (urinary tract infection): (5) Hypomagnesemia: (6) Iron deficiency anemia: (7) Hypothyroidism: Plan Patient is critically ill with septic shock and hypotension seems to be responding to fluid resuscitation, acute kidney injury, electrolyte abnormalities. She requires hospital level care and interventions IV fluid bolus Continue bicarbonate IV fluids Continue broad-spectrum antibiotics Follow blood and urine cultures Resume Synthroid Will keep n.p.o. until evaluated by nephrology, lower suspicion that patient will need dialysis catheter placed however we will wait final recommendations from nephrology then can consider starting diet If patient does not respond to fluid resuscitation, may need transfer to ICU for pressors Replace magnesium Admission and Anticipated Discharge Date Admission Date: March 25, 2024 Subjective Patient awake. Denies any specific complaints. No chest pain, no shortness of breath. No lightheadedness or dizziness. No abdominal pain. Physical Exam Physical Exam: Constitutional: Alert, nontoxic, no distress, morbidly obese HEENT: Mucous membranes moist. Lungs: decreased, no wheezes rales or rhonchi CV: S1-S2, regular Abdomen: Soft, nontender, nondistended Extremities: Chronic lower extremity edema Derm: Thick scaling plaques on lower extremities and feet. Open abrasions on the lower extremities with some surrounding erythema consistent with cellulitis Neuro: No focal deficits, generalized weakness Psych: Cooperative, normal mood Results & Data Results & Data Vital Signs (Past 12 Hours) Vital Signs Temp Pulse Pulse Resp BP Pulse Ox O2 Del Method 03/26/24 07:00 37.2 C 95 H 20 81/55 L 100 Nasal Cannula 03/26/24 03:59 36.5 C 99 H 20 77/42 L 99 Nasal Cannula 03/26/24 01:12 36.6 C 101 H 18 136/71 96 Nasal Cannula 03/26/24 00:51 Nasal Cannula 03/26/24 00:34 36.8 C 101 H 20 94/68 L 94 Nasal Cannula 03/25/24 22:09 108 H O2 Flow Rate 03/26/24 07:00 4 03/26/24 03:59 2 03/26/24 01:12 2 03/26/24 00:51 2 09/18/24 00:34 2 03/25/24 22:09 Diagnostic Findings Reviewed imaging, laboratory and diagnostic studies. Pertinent findings as below. Echocardiogram report reviewed, hyperdynamic left ventricle, ejection fraction greater than 70%, normal right ventricular function Lower extremity ultrasound negative for DVT Troponins flat Magnesium 1.6 Uric acid 10.3 Glucose 200 Hemoglobin A1c 5.5% Creatinine 7.5, improving Carbon oxide 12 Anion gap 12 Potassium 5.9, improving WBCs 25.4 Hemoglobin 8.2
[2024-03-26] MEDS: DAPTOmycin 175 MG in SYRINGE 0 ML IV SCH (12:30)
[2024-03-26] MEDS ORDERED: STAT IV Infusion **Titration per Protocol STA (13:01)
--- NOTE | 2024-03-26 13:08 | Critical Care Consultation ---
Date of Consultation March 26, 2024 Assessment & Plan (1) SALLY (acute kidney injury): (2) Sepsis: Plan Impression: 73-year-old female with acute renal failure and probable sepsis given her elevated white blood cell count. Potential sources would be urinary tract versus bacterial seeding from skin breakdown. Fortunately her lactate is normal and she is mentating clearly. Recommendations: 1. Hypotension: Reassured that the patient has normal lactate indicating adequate perfusion. Will administer an additional 1.5 L of crystalloid for 30 cc/kg goal. In addition we will place her on midodrine which should improve blood pressure. I do not think she requires vasoactive medications parenterally currently. 2. Acute renal failure: Suspect prerenal and hypoperfusion. Nephrology consult pending. Will defer any central access in the event the patient requires some form of HD in the future. Have ordered repeat labs including lactate 3. Metabolic acidosis: The patient was initiated on bicarb. Will repeat VBG now. 4. Sepsis: Lactate was normal. Antibiotics in the form of daptomycin and Azactam have been initiated. Continue for now. Await cultures. 5. Hyperkalemia: Awaiting repeat labs. Has received several agents to lower potassium. 6. Anemia: No evidence of acute blood loss. Continue to follow clinically at this point time. 7. If the patient's repeat laboratory assessment is improving and the patient can remain off pressors, she can likely return back to the floor for continued management under the hospitalist service. A total of 40 minutes in critical care time was spent in evaluation management coordinating care for this patient. Patient has significant possibility of clinical deterioration. History of Present Illness Attending Physician: Leonides Blake DO History of Present Illness Asked by hospitalist to assist in evaluation and management of this patient with low blood pressure and acute renal failure. History obtained from discussion with the patient as well as review the electronic medical record. The patient is a 73-year-old female with a history of obesity hypertension hypothyroidism who was brought to the emergency room due to shortness of breath and progressive lower extremity edema. She was found to be in acute renal failure and hyperkalemic. Her shortness of breath have been going on for at least several weeks and she has had progressive lower extremity edema for months. She has limited mobility. She did have recent follow-up with her primary care provider. She had been taking an ARB for hypertension. She was placed on 2 L of oxygen in the emergency room. Her mentation was clear. She was placed on a bicarb drip due to acidosis and nephrology consultation was o btained. The patient had some borderline blood pressures on the floor today which prompted transfer to the intensive care unit. Of note her lactate was normal. I assessed the patient immediately on arrival to the ICU. With an appropriate sized blood pressure cuff, her systolic pressures are greater than 100. She is mentating clearly. She denies any chest pain. She is not demonstrating any e ctopy. She does not report fevers or chills. She denies any trauma. She did receive antibiotics in the emergency room in the form of daptomycin and Azactam given a unknown penicillin allergy. Random cortisol was not checked. According to the EMR the patient received about 2.7 to 2.9 L of fluid (30 cc/kg would be about 4 L). Allergies Allergy/AdvReac Type Severity Reaction Status Date / Time NSAIDS (Non-Steroidal Allergy Unknown Unknown - Unverified 03/26/24 08:25 Anti-Inflamma On file w/ [facility] Penicillins Allergy Unknown Verified 03/26/24 08:25 Home Medications Medication Instructions Recorded Confirmed Type levothyroxine 88 mcg tablet 88 mcg PO DAILY 03/26/24 03/26/24 History olmesartan 40 mg tablet 40 mg PO DAILY 03/26/24 03/26/24 History Patient History Social History Smoking Status: Never smoker Second Hand Exposure: No; Do You Dip or Chew Tobacco: No; Tobacco Cessation Education Requested by Patient: No Hx Alcohol Use: No Hx Substance Use: No Preferred Language: Maori Communication Ability: Effective 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 No changes. Physical Exam Constitutional: + morbidly obese; no acute distress Neck: trachea midline, no thyromegaly Respiratory: normal respiratory effort, lungs clear to auscultation Cardiovascular: RRR, no murmur, no edema Gastrointestinal (Abdomen): normal bowel sounds, soft, nontender, no hepatosplenomegaly Musculoskeletal: Extremities: extremities normal to inspection Skin: + wound Neurologic: Nonfocal exam Lymphatic: no cervical lymphadenopathy Results & Data Results & Data Vital Signs (Past 12 Hours) Vital Signs Temp Pulse Resp BP Pulse Ox O2 Del Method O2 Flow Rate 03/26/24 11:00 37.0 C 91 H 19 81/47 L 98 Nasal Cannula 2 03/26/24 07:00 37.2 C 95 H 20 81/55 L 100 Nasal Cannula 4 03/26/24 03:59 36.5 C 99 H 20 77/42 L 99 Nasal Cannula 2 03/26/24 01:12 36.6 C 101 H 18 136/71 96 Nasal Cannula 2 Critical Care Results & Data Vital Signs (Past 12 Hours) Vital Signs Temp Pulse Resp BP BP Pulse Ox O2 Del Method 03/26/24 13:10 90/46 L 03/26/24 13:08 95 H 19 105/37 L 100 Nasal Cannula 03/26/24 11:00 37.0 C 91 H 19 81/47 L 98 Nasal Cannula 03/26/24 07:00 37.2 C 95 H 20 81/55 L 100 Nasal Cannula 03/26/24 03:59 36.5 C 99 H 20 77/42 L 99 Nasal Cannula O2 Flow Rate 03/26/24 13:10 03/26/24 13:08 2 03/26/24 11:00 2 03/26/24 07:00 4 03/26/24 03:59 2 Lab & Micro Results (Past 24 Hours) RBC 2.64 M/uL (4.20-5.40) L 03/26/24 WBC 25.41 K/ul (4.8-10.8) H 03/26/24 Hgb 8.2 g/dl (12.0-16.0) L 03/26/24 Hct 25.6 % (37.0-47.0) L 03/26/24 MCV 97.0 fL (80.0-100.0) 03/26/24 MCH 31.1 pg (25.0-34.0) 03/26/24 MCHC 32.0 g/dL (32.0-36.0) 03/26/24 RDW Standard Deviation 53.1 fL (36.4-46.3) H 03/26/24 RDW Coefficient of Variation 14.9 % (11.5-14.5) H 03/26/24 Plt Count 174 K/uL (130-400) 03/26/24 MPV 10.5 fL (9.4-12.4) 03/26/24 Neutrophils (%) (Auto) 68.5 % 03/26/24 Lymphocytes (%) (Auto) 3.4 % 03/26/24 Monocytes # (Auto) 6.83 K/uL (0.11-0.59) H 03/26/24 Eosinophils # (Auto) 0.06 K/uL (0.00-0.50) 03/26/24 Immature Granulocyte % (Auto) 0.7 % 03/26/24 Neutrophils # (Auto) 17.40 K/uL (1.40-6.50) H 03/26/24 Lymphocytes # (Auto) 0.87 K/uL (1.20-3.40) L 03/26/24 Monocytes # (Auto) 6.83 K/uL (0.11-0.59) H 03/26/24 Eosinophils # (Auto) 0.06 K/uL (0.00-0.50) 03/26/24 Basophils # (Auto) 0.08 K/uL (0.00-0.20) 03/26/24 Immature Granulocyte # (Auto) 0.17 K/uL (0.01-0.20) 4 Red Blood Cell Morphology Unremarkable 03/26/24 Na 139 mmol/L (136-145) 03/26/24 K 5.9 mmol/L (3.5-5.1) H 03/26/24 Cl 115 mmol/L (98-107) H 03/26/24 CO2 12 mmol/L (21-32) L 03/26/24 Anion Gap 12 (3-11) H 03/26/24 BUN 150 mg/dl (6-23) H 03/26/24 Creatinine 7.51 mg/dl (0.6-1.2) H* 03/26/24 Estimated GFR ( Amer) 5.6 ml/min 03/26/24 Estimated GFR (Non-Af Amer) 4.8 ml/min 03/26/24 BUN/Creatinine Ratio 20.0 (10-20) 03/26/24 Glu 92 mg/dl (70-99(Fasting)) 03/26/24 Ca 8.3 mg/dl (8.6-10.3) L 03/26/24 Total Bilirubin 0.7 mg/dl (0.2-1.0) 03/25/24 AST 7 U/L (13-39) L 03/25/24 ALT 6 U/L (7-52) L 03/25/24 Alkaline Phosphatase 49 U/L (34-104) 03/25/24 TP 7.0 gm/dl (6.0-8.3) 03/25/24 Albumin 3.6 gm/dl (3.4-5.0) 03/25/24 Globulin 3.4 gm/dl (2.5-4.0) 03/25/24 Albumin/Globulin Ratio 1.1 (0.9-2) 03/25/24 Mg 1.6 mg/dl (1.7-2.4) L 03/26/24 05:36 Calcium Level 8.3 mg/dl (8.6-10.3) L 03/26/24 05:36 Venous Blood pH 7.20 (7.36-7.41) L 03/26/24 02:24 Venous Blood Partial Pressure CO2 32 mmHg (38-50) L 03/26/24 02 :24 Venous Blood Partial Pressure O2 22 mmHg 03/26/24 02:24 Venous Blood HCO3 13 mmol/L 03/26/24 02:24 Venous Blood Base Excess -14.4 mEq/L 03/26/24 02:24 Venous Blood Oxygen Saturation < 60.0 % 03/26/24 02:24 Diagnostic Findings (Past 24 Hours) Chest X-Ray 03/25/24 18:13 XR chest 1V portable CLINICAL HISTORY: Dyspnea. COMPARISON STUDY: No previous studies for comparison. FINDINGS: Lung volumes are normal. Lungs are clear. There is no pneumothorax or pleural effusion. The heart is mildly enlarged. Mediastinal contours are normal. There is no evidence for pulmonary edema. IMPRESSION: No acute cardiopulmonary findings. Cardiomegaly. ACT 112: Negative or not required by law. Electronically signed by: Caleb Barry M.D. 03/25/2024 6:55 PM Venous Doppler Study 03/25/24 19:10 Exam(s): US VENOUS BILATERAL LOWER EXTREMITIES EXAM: US Duplex Bilateral Lower Extremities Veins CLINICAL HISTORY: Reason for exam: severe swelling, SOB. TECHNIQUE: Real-time duplex ultrasound scan of the bilateral lower extremity veins integrating B-mode two-dimensional vascular structure, Doppler spectral analysis, color flow Doppler imaging and compression. COMPARISON: No relevant prior studies available. FINDINGS: Right deep veins: Unremarkable. The visualized deep veins of the right lower extremity are compressible with color flow. No visualized thrombus. Right superficial veins: Unremarkable. Left deep veins: Unremarkable. The visualized deep veins of the left lower extremity are compressible with color flow. No visualized thrombus. Left superficial veins: Unremarkable. Soft tissues: No acute findings. IMPRESSION: No DVT within the bilateral lower extremities. Electronically signed by: Hebert Harley MD 03/25/24 22:56 PM Abdomen/Pelvis CT 03/25/24 21:03 Exam(s): CT ABDOMEN + PELVIS Without Contrast EXAM: CT Abdomen and Pelvis Without Intravenous Contrast CLINICAL HISTORY: Reason for exam: ARF. TECHNIQUE: Axial computed tomography images of the abdomen and pelvis without intravenous contrast. CTDI is 36.67 mGy and DLP is 1660.69 mGy-cm. Automated exposure control was utilized for the study. A dose lowering technique was utilized adhering to the principles of ALARA. COMPARISON: No relevant prior studies available. FINDINGS: ABDOMEN: Liver: Unremarkable. Gallbladder and bile ducts: Unremarkable. Pancreas: Unremarkable. Spleen: Unremarkable. Adrenals: Left adrenal adenoma measuring 2.6 x 1.8 cm. Right adrenal is unremarkable. Kidneys and ureters: Nonobstructing nephrolithiasis bilaterally. No ureteral stone or obstructive uropathy. Stomach and bowel: Unremarkable. PELVIS: Appendix: No findings to suggest acute appendicitis. Bladder: Vences catheter within the bladder. Bladder is decompressed. Reproductive: Unremarkable as visualized. ABDOMEN and PELVIS: Intraperitoneal space: Unremarkable. No free air. No significant fluid collection. Bones/joints: Advanced degenerative changes within the lumbar spine. Soft tissues: Fat-containing umbilical hernia. Vasculature: Aortobiiliac atherosclerotic calcifications. Lymph nodes: Unremarkable. IMPRESSION: 1. Nonobstructing nephrolithiasis bilaterally. No ureteral stone or obstructive uropathy. 2. Vences catheter within the bladder. Bladder is decompressed. 3. Fat-containing umbilical hernia. Electronically signed by: Hebert Harley MD 03/26/24 00:25 AM I & O Totals 24 Hours 03/25/24 03/26/24 03/27/24 06:59 06:59 06:59 Intake Total 946.667 / 512.900 4486 / 2350 Output Total 300 / 300 Balance 646.667 / 982.744 6129 / 2350 Cumulative 03/25/24 17:48 thru 03/26/24 11:53 Intake Total 3296.667 Output Total 300 Balance 2996.667 RT Ventilator Mngmt (Last Documented) Ventilator Ordered Settings Respiratory Rate 19 03/26/24 13:08 Ventilator - PT Measurements Respiratory Rate 19 Coding Level of Care Code 28433 CRITICAL CARE 1ST 30-74M Diagnoses SALLY (acute kidney injury) N17.9 Sepsis A41.9
--- NOTE | 2024-03-26 13:41 | Nephrology Consultation ---
Date of Consultation March 26, 2024 Assessment & Plan (1) SALLY (acute kidney injury): I do not have previous baseline kidney function to compare. However a creatinine of 8.5 is almost certainly higher than her baseline and would qualify as acute kidney injury and is associated with hyperkalemia and metabolic acidosis. At this time the most likely etiology of acute kidney injury is acute tubular necrosis in the setting of sepsis with low blood pressure. patient was on olmesartan which does not help in this situation. However does not appear she was taking any NSAIDs or diuretics prior to hospitalization. given that creatinine has come down quite a bit in less than a day I do not feel we have to do workup for glomerular nephritis. Current clinical situation with sepsis low blood pressure and low oxygen saturation on admission is very consistent with acute tubular necrosis as the di agnosis. Her urinary finding is also consistent with ATN. current antibiotics of aztreonam and daptomycin is reasonable in this situation of acute kidney injury. we do have to modify the antibiotics after the report of the blood and urine culture. continue to hold olmesartan patient does have metabolic acidosis with low blood pressure and high potassium so continuing bicarb drip is reasonable. And would use isotonic bicarb with D5 water and 150 mEq of sodium bicarb in 1 L bag at 125 mL/hour. we do have to watch for her urine output. If she is not making much urine we do need to slow down the rate of fluid. current isotonic bicarb gives the same amount of sodium load as a normal saline ringer lactate or Plasmalyte so no need to change to the other fluid. I also had discussion with the patient that her current blood work is very abnormal and there is still some chance that she may need dialysis. given improvement in her potassium and creatinine overnight she does not need dialysis today but will need daily assessment. reviewed CBC and does not show low platelet but does show elevated white count consistent with infectious etiology. UA is more consistent with ATN. CT abdomen reviewed and does not show hydronephrosis. incidental bilateral nonobstructive kidney stone does not have any clinical implication at this point. I am ordering repeat renal panel and also CK. repeat UA tomorrow. (2) Sepsis: patient has very elevated white count with low blood pressure. She is currently on broad-spectrum aztreonam and daptomycin but cultures are pending. she also has extensive skin lesions in the lower extremity which could be the source of infection. Critical Care Medicine note was reviewed in detail and agree with the plan of action (3) Acute hyperkalemia: potassium on admission was 6.9 and with medical management of Lokelma and bicarb drip it has come down to 5.9 which is still high but not critical. would like to do another renal panel now to reassess the situation of metabolic acidosis acute kidney injury and potassium. continue Lokelma and bicarb drip for the time being. Plan case complexity high. Total time spent 80 minutes which also includes the time spent in discussing about the potential need of dialysis and explanation of the procedure. History of Present Illness Reason for Consultation: acute kidney injury and hyperkalemia Attending Physician: Leonides Blake DO History of Present Illness 73-year-old female who normally gets healthcare in [place] outside of [facility]. She was admitted yesterday after she presented to the emergency department because of extreme weakness shortness of breath and lower extremity edema. she is not a good historian. As per the medical record she has been living with a sister for the last 14 years. we do not have record of her previous lab and patient can not tell me accurately. however as per the patient she has never had any kidney problem and has never seen a kidney doctor. lab work was significant for severe acute kidney injury with a potassium of 6.9 creatinine of 8.5 and metabolic acidosis. Since being admitted she has received Lokelma as well as bicarb drip and is currently still on bicarb drip. Her blood pressure was noted to be low and it is still low with elevated white count. Patient had just been seen by Critical Care Medicine also for sepsis. patient does have infected areas in her lower extremity. urine output has not been very good despite receiving lot of fluids. CT abdomen did not show hydronephrosis but did show incidental finding of nonobstructive kidney stones bilaterally. echo has been done and was essentially unremarkable. urine culture and blood culture is pending. However patient is on broad- spectrum antibiotics -- aztreonam and daptomycin. review of systems as detailed in HPI and unless stated otherwise 12 systems reviewed and negative Physical Exam Physical Exam: General- Not in acute distress. awake alert and answers basic questions but seemed to have difficulty answering difficult health related questions Neck- supple, no JVD Lungs- clear to auscultation , no wheezing or crackles Heart- regular rate and rhythm; no murmur, no gallop. Abdomen- soft, nontender Extremities- b/l gross lower extremity edema present with distal erythema and superficial skin ulcers which were bandaged. Allergies Allergy/AdvReac Type Severity Reaction Status Date / Time NSAIDS (Non-Steroidal Allergy Unknown Unknown - Unverified 03/26/24 08:25 Anti-Inflamma On file w/ [facility] Penicillins Allergy Unknown Verified 03/26/24 08:25 Home Medications Medication Instructions Recorded Confirmed Type levothyroxine 88 mcg tablet 88 mcg PO DAILY 03/26/24 03/26/24 History olmesartan 40 mg tablet 40 mg PO DAILY 03/26/24 03/26/24 History Patient History Social History Smoking Status: Never smoker Second Hand Exposure: No; Do You Dip or Chew Tobacco: No; Tobacco Cessation Education Requested by Patient: No Hx Alcohol Use: No Hx Substance Use: No Preferred Language: Cambodian Communication Ability: Effective 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 Beliefs That Will Affect Care: None Current Living Situation: Alone Other Information That Helps Us Care for You: No Feels Safe at Home: Yes Safety Concerns: Feels Safe At This Time Assistive Devices: Walker Results & Data Vital Signs (Past 12 Hours) Vital Signs Temp Pulse Pulse Resp BP BP BP 03/26/24 13:30 90/43 L 03/26/24 13:28 03/26/24 13:27 92 H 18 03/26/24 13:15 92 H 17 03/26/24 13:12 100/53 L 03/26/24 13:12 100/53 L 03/26/24 13:12 100/53 L 03/26/24 13:12 100/53 L 03/26/24 13:10 90/46 L 03/26/24 13:10 90/46 L 03/26/24 13:08 95 H 19 105/37 L 03/26/24 13:07 105/37 L 03/26/24 13:03 90 19 03/26/24 13:00 94 H 18 03/26/24 12:30 95 H 15 03/26/24 12:15 96 H 03/26/24 12:09 94 H 18 03/26/24 11:57 96 H 16 03/26/24 11:48 93 H 17 03/26/24 11:33 92 H 14 03/26/24 11:21 96 H 16 03/26/24 11:00 37.0 C 91 H 19 81/47 L 03/26/24 10:58 81/47 L 03/26/24 10:54 91 H 15 03/26/24 10:33 94 H 16 03/26/24 10:24 94 H 20 03/26/24 10:15 93 H 18 03/26/24 10:06 96 H 16 03/26/24 09:54 92 H 16 03/26/24 09:33 91 H 14 03/26/24 09:24 93 H 20 03/26/24 09:18 94 H 16 03/26/24 09:03 95 H 14 03/26/24 08:51 94 H 33 H 03/26/24 08:06 77/42 L 03/26/24 08:04 69/40 L 03/26/24 08:00 96 H 17 03/26/24 07:54 95 H 13 03/26/24 07:45 93 H 23 03/26/24 07:30 95 H 17 03/26/24 07:17 81/55 L 03/26/24 07:17 81/55 L 03/26/24 07:15 92 H 25 H 03/26/24 07:06 91/40 L 03/26/24 07:00 37.2 C 95 H 20 81/55 L 03/26/24 06:27 95 H 21 03/26/24 06:00 94 H 19 03/26/24 05:51 94 H 16 03/26/24 05:45 96 H 17 03/26/24 05:24 96 H 21 03/26/24 05:18 96 H 14 03/26/24 05:06 94 H 18 03/26/24 04:54 94 H 20 03/26/24 04:45 96 H 19 03/26/24 04:33 96 H 29 H 03/26/24 03:59 36.5 C 99 H 20 77/42 L Pulse Ox O2 Del Method O2 Flow Rate 03/26/24 13:30 03/26/24 13:28 Nasal Cannula 2 03/26/24 13:27 100 03/26/24 13:15 99 03/26/24 13:12 03/26/24 13:12 03/26/24 13:12 03/26/24 13:12 03/26/24 13:10 03/26/24 13:10 03/26/24 13:08 100 Nasal Cannula 2 03/26/24 13:07 03/26/24 13:03 99 03/26/24 13:00 99 03/26/24 12:30 03/26/24 12:15 03/26/24 12:09 03/26/24 11:57 03/26/24 11:48 03/26/24 11:33 03/26/24 11:21 03/26/24 11:00 98 Nasal Cannula 2 03/26/24 10:58 03/26/24 10:54 03/26/24 10:33 03/26/24 10:24 03/26/24 10:15 03/26/24 10:06 03/26/24 09:54 03/26/24 09:33 03/26/24 09:24 03/26/24 09:18 03/26/24 09:03 03/26/24 08:51 03/26/24 08:06 03/26/24 08:04 03/26/24 08:00 03/26/24 07:54 03/26/24 07:45 03/26/24 07:30 03/26/24 07:17 03/26/24 07:17 03/26/24 07:15 03/26/24 07:06 03/26/24 07:00 100 Nasal Cannula 4 03/26/24 06:27 03/26/24 06:00 03/26/24 05:51 03/26/24 05:45 03/26/24 05:24 03/26/24 05:18 100 03/26/24 05:06 99 03/26/24 04:54 99 03/26/24 04:45 99 03/26/24 04:33 99 03/26/24 03:59 99 Nasal Cannula 2 Laboratory Results reviewed CBC showing elevated white count. Chemistry panel shows severe acute kidney injury with hyperkalemia and metabolic acidosis. blood and urine culture reviewed and is currently pending Diagnostic Findings CT abdomen and pelvis reviewed and does not show any significant findings
[2024-03-26] MEDS ORDERED: Nursing to Pharmacy Communication SCH (13:45)
[2024-03-26] MEDS: MIDODRINE HCL 10 MG TAB PO ONE (14:33)
[2024-03-26 14:40] LABS: Base Excess VBG -9.6 mEq/L; HCO3 VBG 17 mmol/L; Oxygen Saturation VBG 60.1 %; PCO2 VBG 36 mmHg (38-50); PO2 VBG 31 mmHg; pH VBG 7.27 (7.36-7.41)
[2024-03-26] MEDS: NOREPINEPHRINE/D5W 4 MG/250 ML IV ONE (14:44)
[2024-03-26] MEDS: NOREPINEPHRINE/D5W 4 MG/250 ML PLCT IV SCH (14:45)
[2024-03-26 15:28] LABS: Albumin Globulin Ratio 1.1 (0.9-2); Bilirubin,Total 0.6 mg/dl (0.2-1.0); Calcium 8.1 mg/dl (8.6-10.3); Creatinine Clr Calc Pharmacy 9.1 ml/min; Est GFR (African American) 6.2 ml/min; Est GFR (Non-African American) 5.3 ml/min; Globulin 2.8 gm/dl (2.5-4.0); Total Protein 5.8 gm/dl (6.0-8.3)
[2024-03-26] MEDS: SODIUM CHLORIDE 0.9% 1,000 ML IV ONE (16:14)
[2024-03-26] MEDS: MIDODRINE HCL 10 MG TAB PO SCH (17:38)
[2024-03-26] MEDS: AZTREONAM 2,000 MG in DEXTROSE 5% MINI-B 100 ML IV SCH (18:35)
[2024-03-27 04:46] LABS: Hematocrit (blood only) 25.3 % (37.0-47.0); Hemoglobin 8.1 g/dl (12.0-16.0); Mean Corpuscular Hemoglobin 30.9 pg (25.0-34.0); Mean Corpuscular Volume 96.6 fL (80.0-100.0); Mean Platelet Volume 10.3 fL (9.4-12.4); Platelet Count 190 K/uL (130-400); RDW Coefficient of Variation 15.3 % (11.5-14.5); RDW Standard Deviation 53.9 fL (36.4-46.3); Red Blood Count 2.62 M/uL (4.20-5.40); White Blood Count 17.76 K/ul (4.8-10.8)
[2024-03-27 04:48] LABS: BUN Creatinine Ratio 22.4 (10-20); Calcium 7.5 mg/dl (8.6-10.3); Creatinine Clr Calc Pharmacy 11.5 ml/min; Est GFR (African American) 8.2 ml/min; Est GFR (Non-African American) 7.1 ml/min; Magnesium 1.9 mg/dl (1.7-2.4); Phosphorus 4.6 mg/dl (2.5-4.9); Potassium 4.9 mmol/L (3.5-5.1)
--- NOTE | 2024-03-27 06:01 | Electrocardiogram Report ---
Test Reason : Blood Pressure : */* mmHG Vent. Rate : 103 BPM Atrial Rate : 103 BPM P-R Int : 194 ms QRS Dur : 82 ms QT Int : 324 ms P-R-T Axes : 51 101 57 degrees QTcB Int : 424 ms Sinus tachycardia Rightward axis Low voltage QRS Borderline ECG No previous ECGs available Confirmed by Jose Alberto Gold ([id number]) on 03/27/2024 6:01:22 AM Referred By: Confirmed By: Jose Alberto Gold
--- NOTE | 2024-03-27 06:14 | Electrocardiogram Report ---
Test Reason : Blood Pressure : */* mmHG Vent. Rate : 99 BPM Atrial Rate : 99 BPM P-R Int : 186 ms QRS Dur : 74 ms QT Int : 332 ms P-R-T Axes : 41 88 41 degrees QTcB Int : 426 ms Normal sinus rhythm Low voltage QRS Borderline ECG When compared with ECG of 25-Mar-2024 18:12, (unconfirmed) No significant change was found Confirmed by Jose Alberto Gold ([id number]) on 03/27/2024 6:14:23 AM Referred By: REFERRED SELF Confirmed By: Jose Alberto Gold
[2024-03-27] MEDS: LEVOTHYROXINE SODIUM 88 MCG TABLET PO SCH (06:20)
--- NOTE | 2024-03-27 07:32 | Critical Care Progress Note ---
Date of Service March 27, 2024 Assessment & Plan (1) SALLY (acute kidney injury): (2) Sepsis: Plan Impression: 73-year-old female with acute renal failure and probable sepsis given her elevated white blood cell count. Potential sources would be urinary tract versus bacterial seeding from skin breakdown. Fortunately her lactate is normal and she is mentating clearly. 24-hour events: Patient was transferred to the ICU yesterday due to persistently low blood pressure. She received an additional 2 L of crystalloid resuscitation here in the ICU and was started on midodrine. Her blood pressure numbers improved and she never required parenteral vasoactive agents. Kidney numbers have improved and she is made about 1.3 L of urine overnight. Recommendations: 1. Hypotension: Resolved. Suspect patient may have been mildly under resuscitated and responded favorably to additional crystalloid. Lactate remains normal. She has been placed on midodrine which seems reasonable to continue for now. Would discontinue if blood pressure increases. Continue to hold any an tihypertensive agents 2. Acute renal failure: Suspect prerenal and ATN. Nephrology consult reviewed. Numbers improving. Continue management per nephrology 3. Metabolic acidosis: Repeat VBG showed improvement in numbers. Bicarb this morning up to 19. Will defer to nephrology IV fluids and when to discontinue bicarb infusion 4. Sepsis: Lactate was normal. Antibiotics in the form of daptomycin and Azactam have been initiated. Urine with gram-negative rods, speciation and sensitivity pending. White blood cell count responding appropriately. 5. Hyperkalemia: Improving. Management per nephrology 6. Anemia: No evidence of acute blood loss. Continue to follow clinically at this point time. Patient appears to be trending in appropriate direction. Her critical care issues have resolved. She is appropriate to transfer back to the floor under the care of the hospitalist. Critical care services will sign off. Feel free to contact us with questions or concerns Admission and Anticipated Discharge Date Admission Date: March 25, 2024 Subjective Patient seen and examined. EMR reviewed. Discussed with bedside critical care nurse and on multidisciplinary rounds as well as with overnight critical care TERRENCE. The patient is awake alert conversant this morning. She denies any chest pain or palpitations. No fevers chills or night sweats. No abdominal pain. Review of Systems Review of Systems: All systems reviewed & are unremarkable except as noted in Subjective Physical Exam Constitutional: + morbidly obese; no acute distress Neck: trachea midline, no thyromegaly Respiratory: normal respiratory effort, lungs clear to auscultation Cardiovascular: RRR, no murmur, no edema Gastrointestinal (Abdomen): normal bowel sounds, soft, nontender, no hepatosplenomegaly Musculoskeletal: Extremities: extremities normal to inspection Skin: + wound Lymphatic: no cervical lymphadenopathy Results & Data Results & Data Vital Signs (Past 12 Hours) Vital Signs Temp Pulse Resp BP Pulse Ox O2 Del Method O2 Del Method 03/27/24 06:09 79 15 99 03/27/24 06:00 92/49 L 03/27/24 05:57 77 16 99 03/27/24 05:00 72 17 105/45 L 100 03/27/24 05:00 105/45 L 03/27/24 04:03 74 13 95/51 L 100 03/27/24 03:51 75 10 L 100 03/27/24 03:00 83 17 93/40 L 100 03/27/24 02:06 83 18 114/39 L 100 03/27/24 02:05 84 03/27/24 01:57 82 15 100 03/27/24 01:50 98/52 L 03/27/24 01:24 80 14 100 03/27/24 01:15 79 14 100 03/27/24 00:34 Nasal Cannula 03/27/24 00:32 93/35 L 03/27/24 00:30 78/67 L 03/27/24 00:21 78 19 99 03/27/24 00:00 79 18 121/52 L 100 03/26/24 23:47 36.6 C 03/26/24 23:09 82 21 106/55 L 100 03/26/24 22:42 83 22 100 03/26/24 22:30 81 15 88/64 L 100 03/26/24 22:03 82 23 100 03/26/24 22:00 124/50 L 03/26/24 21:45 86 15 99 03/26/24 21:27 85 17 96/41 L 100 03/26/24 21:03 80 15 99/41 L 100 03/26/24 20:45 83 14 99 03/26/24 20:31 105/46 L 03/26/24 20:21 80 17 100 03/26/24 20:09 78 18 100 03/26/24 20:00 94/52 L 03/26/24 19:57 82 15 99 03/26/24 19:53 Nasal Cannula O2 Flow Rate O2 Flow Rate 03/27/24 06:09 03/27/24 06:00 03/27/24 05:57 03/27/24 05:00 03/27/24 05:00 03/27/24 04:03 03/27/24 03:51 03/27/24 03:00 03/27/24 02:06 03/27/24 02:05 03/27/24 01:57 03/27/24 01:50 03/27/24 01:24 03/27/24 01:15 03/27/24 00:34 2 03/27/24 00:32 03/27/24 00:30 03/27/24 00:21 03/27/24 00:00 03/26/24 23:47 03/26/24 23:09 03/26/24 22:42 03/26/24 22:30 03/26/24 22:03 03/26/24 22:00 03/26/24 21:45 03/26/24 21:27 03/26/24 21:03 03/26/24 20:45 03/26/24 20:31 03/26/24 20:21 03/26/24 20:09 03/26/24 20:00 03/26/24 19:57 03/26/24 19:53 2 Critical Care Results & Data Vital Signs (Past 12 Hours) Vital Signs Temp Pulse Resp BP Pulse Ox O2 Del Method O2 Del Method 03/27/24 06:09 79 15 99 03/27/24 06:00 92/49 L 03/27/24 05:57 77 16 99 03/27/24 05:00 72 17 105/45 L 100 03/27/24 05:00 105/45 L 03/27/24 04:03 74 13 95/51 L 100 03/27/24 03:51 75 10 L 100 03/27/24 03:00 83 17 93/40 L 100 03/27/24 02:06 83 18 114/39 L 100 03/27/24 02:05 84 03/27/24 01:57 82 15 100 03/27/24 01:50 98/52 L 03/27/24 01:24 80 14 100 03/27/24 01:15 79 14 100 03/27/24 00:34 Nasal Cannula 03/27/24 00:32 93/35 L 03/27/24 00:30 78/67 L 03/27/24 00:21 78 19 99 03/27/24 00:00 79 18 121/52 L 100 03/26/24 23:47 36.6 C 03/26/24 23:09 82 21 106/55 L 100 03/26/24 22:42 83 22 100 03/26/24 22:30 81 15 88/64 L 100 03/26/24 22:03 82 23 100 03/26/24 22:00 124/50 L 03/26/24 21:45 86 15 99 03/26/24 21:27 85 17 96/41 L 100 03/26/24 21:03 80 15 99/41 L 100 03/26/24 20:45 83 14 99 03/26/24 20:31 105/46 L 03/26/24 20:21 80 17 100 03/26/24 20:09 78 18 100 03/26/24 20:00 94/52 L 03/26/24 19:57 82 15 99 03/26/24 19:53 Nasal Cannula O2 Flow Rate O2 Flow Rate 03/27/24 06:09 03/27/24 06:00 03/27/24 05:57 03/27/24 05:00 03/27/24 05:00 03/27/24 04:03 03/27/24 03:51 03/27/24 03:00 03/27/24 02:06 03/27/24 02:05 03/27/24 01:57 03/27/24 01:50 03/27/24 01:24 03/27/24 01:15 03/27/24 00:34 2 03/27/24 00:32 03/27/24 00:30 03/27/24 00:21 03/27/24 00:00 03/26/24 23:47 03/26/24 23:09 03/26/24 22:42 03/26/24 22:30 03/26/24 22:03 03/26/24 22:00 03/26/24 21:45 03/26/24 21:27 03/26/24 21:03 03/26/24 20:45 03/26/24 20:31 03/26/24 20:21 03/26/24 20:09 03/26/24 20:00 03/26/24 19:57 03/26/24 19:53 2 Lab & Micro Results (Past 24 Hours) RBC 2.62 M/uL (4.20-5.40) L 03/27/24 WBC 17.76 K/ul (4.8-10.8) H 03/27/24 Hgb 8.1 g/dl (12.0-16.0) L 03/27/24 Hct 25.3 % (37.0-47.0) L 03/27/24 MCV 96.6 fL (80.0-100.0) 03/27/24 MCH 30.9 pg (25.0-34.0) 03/27/24 MCHC 32.0 g/dL (32.0-36.0) 03/27/24 RDW Standard Deviation 53.9 fL (36.4-46.3) H 03/27/24 RDW Coefficient of Variation 15.3 % (11.5-14.5) H 03/27/24 Plt Count 190 K/uL (130-400) 03/27/24 MPV 10.3 fL (9.4-12.4) 03/27/24 Na 139 mmol/L (136-145) 03/27/24 K 4.9 mmol/L (3.5-5.1) 03/27/24 Cl 110 mmol/L (98-107) H 03/27/24 CO2 19 mmol/L (21-32) L 03/27/24 Anion Gap 10 (3-11) 03/27/24 BUN 122 mg/dl (6-23) H 03/27/24 Creatinine 5.45 mg/dl (0.6-1.2) H* 03/27/24 Estimated GFR ( Amer) 8.2 ml/min 03/27/24 Estimated GFR (Non-Af Amer) 7.1 ml/min 03/27/24 BUN/Creatinine Ratio 22.4 (10-20) H 03/27/24 Glu 95 mg/dl (70-99(Fasting)) 03/27/24 Ca 7.5 mg/dl (8.6-10.3) L 03/27/24 Phosphorus Level 4.6 mg/dl (2.5-4.9) 03/27/24 Total Bilirubin 0.6 mg/dl (0.2-1.0) 03/26/24 AST 6 U/L (13-39) L 03/26/24 ALT 6 U/L (7-52) L 03/26/24 Alkaline Phosphatase 42 U/L (34-104) 03/26/24 TP 5.8 gm/dl (6.0-8.3) L 03/26/24 Albumin 3.0 gm/dl (3.4-5.0) L 03/26/24 Globulin 2.8 gm/dl (2.5-4.0) 03/26/24 Albumin/Globulin Ratio 1.1 (0.9-2) 03/26/24 Mg 1.9 mg/dl (1.7-2.4) 03/27/24 03:49 Calcium Level 7.5 mg/dl (8.6-10.3) L 03/27/24 03:49 Venous Blood pH 7.27 (7.36-7.41) L 03/26/24 14:27 Venous Blood Partial Pressure CO2 36 mmHg (38-50) L 03/26/24 14 :27 Venous Blood Partial Pressure O2 31 mmHg 03/26/24 14:27 Venous Blood HCO3 17 mmol/L 03/26/24 14:27 Venous Blood Base Excess -9.6 mEq/L 03/26/24 14:27 Venous Blood Oxygen Saturation 60.1 % 03/26/24 14:27 Microbiology 03/25/24 Unknown Urine Culture - Preliminary Urine,Clean Catch Gram negative bacilli 03/25/24 19:21 Aerobic Blood Culture - Preliminary Blood No growth in Aerobic bottle after 24 hours. Anaerobic Blood Culture - Preliminary No growth in Anaerobic bottle after 24 hours. I & O Totals 24 Hours 03/26/24 03/27/24 03/28/24 06:59 06:59 06:59 Intake Total 946.667 / 780.162 5765 / 6850 Output Total 300 / 300 1625 / 1625 Balance 646.667 / 739.453 4694 / 5225 Cumulative 03/25/24 17:48 thru 03/27/24 06:45 Intake Total 7996.667 Output Total 1925 Balance 5871.667 RT Ventilator Mngmt (Last Documented) Ventilator Ordered Settings Respiratory Rate 15 03/27/24 06:09 Ventilator - PT Measurements Respiratory Rate 15 Coding Level of Care Code 25391 SUB INP/OBS CARE 3/50MIN Diagnoses SALLY (acute kidney injury) N17.9 Sepsis A41.9
[2024-03-27] MEDS: ACETAMINOPHEN 325 MG TAB PO PRN (08:14)
[2024-03-27] MEDS: ONDANSETRON INJ 2 MG/ML 2 ML VIAL IV PRN (09:21)
[2024-03-27] MEDS ORDERED: Nursing to Pharmacy Communication SCH (09:30)
[2024-03-27] MEDS: METOCLOPRAMIDE HCL INJ 5 MG/ML 2 ML VIAL IV PRN (11:48)
--- NOTE | 2024-03-27 12:13 | Electrocardiogram Report ---
Test Reason : Blood Pressure : */* mmHG Vent. Rate : 76 BPM Atrial Rate : 76 BPM P-R Int : 204 ms QRS Dur : 78 ms QT Int : 374 ms P-R-T Axes : 50 76 39 degrees QTcB Int : 420 ms Normal sinus rhythm Low voltage QRS Borderline ECG When compared with ECG of 26-Mar-2024 05:51, No significant change was found Confirmed by Garth Tapia [id number]) on 03/27/2024 12:12:52 PM Referred By: REFERRED SELF Confirmed By: Garth Tapia
--- NOTE | 2024-03-27 12:23 | Hospitalist Progress Note ---
Date of Service March 27, 2024 Assessment & Plan (1) Acute kidney injury (SALLY) with acute tubular necrosis (ATN): (2) Bilateral lower leg cellulitis: (3) Acute UTI (urinary tract infection): (4) Hypomagnesemia: (5) Septic shock: (6) Iron deficiency anemia: (7) Hypothyroidism: Plan Patient remains critically ill, however septic shock has resolved, blood pressures have stabilized. Okay to transfer out of ICU Continue current antibiotics, adjust for renal function improving. Monitor urine culture for sensitivities Continue midodrine for blood pressure support Continue to monitor laboratory studies Metabolic acidosis is improving, IV fluid as determined by nephrology Therapies Update sister via phone Admission and Anticipated Discharge Date Admission Date: March 25, 2024 Subjective Patient states he feels a little bit nauseated and dizzy today, blood pressures have improved. Physical Exam Physical Exam: Constitutional: Alert, nontoxic HEENT: Mucous membranes moist. Lungs: Clear to auscultation, decreased, no wheezes rales or rhonchi CV: S1-S2, regular Abdomen: Soft, nontender, nondistended Extremities: No significant edema Neuro: No focal deficits, generalized weakness Derm: Dressings on lower extremity abrasions Psych: Cooperative, normal mood Results & Data Results & Data Vital Signs (Past 12 Hours) Vital Signs Temp Pulse Pulse Resp BP BP Pulse Ox 03/27/24 11:31 36.6 C 76 16 105/68 94 03/27/24 09:56 03/27/24 09:14 36.5 C 79 14 93/56 L 95 03/27/24 08:03 03/27/24 08:03 96/43 L 03/27/24 08:01 96/43 L 03/27/24 07:57 81 18 97 03/27/24 07:56 36.5 C 97 03/27/24 07:55 72 03/27/24 07:00 111/28 L 03/27/24 07:00 111/28 L 03/27/24 07:00 111/28 L 03/27/24 07:00 76 16 100 03/27/24 06:09 79 15 99 03/27/24 06:00 92/49 L 03/27/24 05:57 77 16 99 03/27/24 05:00 72 17 105/45 L 100 03/27/24 05:00 105/45 L 03/27/24 04:03 74 13 95/51 L 100 03/27/24 03:51 75 10 L 100 03/27/24 03:00 83 17 93/40 L 100 03/27/24 02:06 83 18 114/39 L 100 03/27/24 02:05 84 03/27/24 01:57 82 15 100 03/27/24 01:50 98/52 L 03/27/24 01:24 80 14 100 03/27/24 01:15 79 14 100 03/27/24 00:34 03/27/24 00:32 93/35 L 03/27/24 00:30 78/67 L 03/27/24 00:21 78 19 99 O2 Del Method O2 Del Method O2 Flow Rate 03/27/24 11:31 Room Air 03/27/24 09:56 Room Air 03/27/24 09:14 Room Air 03/27/24 08:03 Room Air 03/27/24 08:03 03/27/24 08:01 03/27/24 07:57 03/27/24 07:56 Room Air 03/27/24 07:55 03/27/24 07:00 03/27/24 07:00 03/27/24 07:00 03/27/24 07:00 03/27/24 06:09 03/27/24 06:00 03/27/24 05:57 03/27/24 05:00 03/27/24 05:00 03/27/24 04:03 03/27/24 03:51 03/27/24 03:00 03/27/24 02:06 03/27/24 02:05 03/27/24 01:57 03/27/24 01:50 03/27/24 01:24 03/27/24 01:15 03/27/24 00:34 Nasal Cannula 2 03/27/24 00:32 03/27/24 00:30 03/27/24 00:21 Diagnostic Findings Reviewed imaging, laboratory and diagnostic studies. Pertinent findings as below. Blood culture no growth to date Urine culture gram-negative bacteria 80,000 colonies Creatinine 5.4, improved WBC 17.7, improved Hemoglobin 8.1, stable
[2024-03-27] MEDS: AZTREONAM 2,000 MG in DEXTROSE 5% MINI-B 100 ML IV SCH (13:05)
[2024-03-27] MEDS ORDERED: STAT IV/IM STA (13:58)
--- NOTE | 2024-03-27 14:02 | Nephrology Progress Note ---
Date of Service March 27, 2024 Assessment & Plan Admission and Anticipated Discharge Date Admission Date: March 25, 2024 Subjective Assessment & Plan (1) SALLY (acute kidney injury): I do not have previous baseline kidney function to compare. However a creatinine of 8.5 is almost certainly higher than her baseline and would qualify as acute kidney injury and is associated with hyperkalemia and metabolic acidosis. At this time the most likely etiology of acute kidney injury is acute tubular necrosis in the setting of sepsis with low blood pressure. patient was on olmesartan which does not help in this situation. However does not appear she was taking any NSAIDs or diuretics prior to hospitalization. given that creatinine has come down quite a bit in less than a day I do not feel we have to do workup for glomerular nephritis. Current clinical situation with sepsis low blood pressure and low oxygen saturation on admission is very consistent with acute tubular necrosis as the diagnosis. Her urinary finding is also consistent with ATN. --- I also had discussion with the patient that her current blood work is very abnormal and there is still some chance that she may need dialysis. Although given sig renal recovery chances are low but not out of danger totally. No dialysis needed today and will assess daily. Good urine out put and creat trending down but still high at 5.45 and BUN of 120+ So far no e/o fluid overload despite getting lot of IVF. Can give iv lasix 40 mg if needed if she gets SOB Will stop Lokelma now. Will lower bicarb drip to 75 ml/hr. Bicarb now 19. will stop bicarb drip once Serum Bicarb is 22+ reviewed ICU note regarding Sepsis and agree. (2) Sepsis: patient had very elevated white count with low blood pressure. Now better and is out of ICU. She is currently on broad-spectrum aztreonam and daptomycin. Urine C/s is +ve for GNR Blood C/ negative. she also has extensive skin lesions in the lower extremity which could be the source of infection. (3) Acute hyperkalemia: potassium on admission was 6.9 and with medical management of Lokelma and bicarb drip it has come down to normal. Will stop Lokelma now. Will lower bicarb drip to 75 ml/hr. Bicarb now 19. will stop bicarb drip once Serum Bicarb is 22+ S---patient doing better. better BP and Good urine output so was transferred out of ICU earlier today. Physical Exam Physical Exam: General- Not in acute distress. awake alert and answers basic questions but seemed to have difficulty answering difficult health related questions Neck- supple, no JVD Lungs- clear to auscultation , no wheezing or crackles Heart- regular rate and rhythm; no murmur, no gallop. Abdomen- soft, nontender Extremities- b/l gross lower extremity edema present with distal erythema and superficial skin ulcers which were bandaged. Results & Data Vital Signs (Past 12 Hours) Vital Signs Temp Pulse Pulse Resp BP BP Pulse Ox 03/27/24 11:31 36.6 C 76 16 105/68 94 03/27/24 09:56 03/27/24 09:14 36.5 C 79 14 93/56 L 95 03/27/24 08:03 03/27/24 08:03 96/43 L 03/27/24 08:01 96/43 L 03/27/24 07:57 81 18 97 03/27/24 07:56 36.5 C 97 03/27/24 07:55 72 03/27/24 07:00 111/28 L 03/27/24 07:00 111/28 L 03/27/24 07:00 111/28 L 03/27/24 07:00 76 16 100 03/27/24 06:09 79 15 99 03/27/24 06:00 92/49 L 03/27/24 05:57 77 16 99 03/27/24 05:00 72 17 105/45 L 100 03/27/24 05:00 105/45 L 03/27/24 04:03 74 13 95/51 L 100 03/27/24 03:51 75 10 L 100 03/27/24 03:00 83 17 93/40 L 100 03/27/24 02:06 83 18 114/39 L 100 03/27/24 02:05 84 O2 Del Method 03/27/24 11:31 Room Air 03/27/24 09:56 Room Air 03/27/24 09:14 Room Air 03/27/24 08:03 Room Air 03/27/24 08:03 03/27/24 08:01 03/27/24 07:57 03/27/24 07:56 Room Air 03/27/24 07:55 03/27/24 07:00 03/27/24 07:00 03/27/24 07:00 03/27/24 07:00 03/27/24 06:09 03/27/24 06:00 03/27/24 05:57 03/27/24 05:00 03/27/24 05:00 03/27/24 04:03 03/27/24 03:51 03/27/24 03:00 03/27/24 02:06 03/27/24 02:05
[2024-03-27] MEDS: SODIUM BICARBONATE 8.4% 150 MEQ in DEXTROSE 5% 1,000 ML IV SCH (15:26)
[2024-03-28 04:40] LABS: Hematocrit (blood only) 25.9 % (37.0-47.0); Hemoglobin 8.3 g/dl (12.0-16.0); Mean Corpuscular Hemoglobin 31.2 pg (25.0-34.0); Mean Corpuscular Volume 97.4 fL (80.0-100.0); Mean Platelet Volume 10.3 fL (9.4-12.4); Platelet Count 202 K/uL (130-400); RDW Coefficient of Variation 15.5 % (11.5-14.5); RDW Standard Deviation 55.7 fL (36.4-46.3); Red Blood Count 2.66 M/uL (4.20-5.40); White Blood Count 15.17 K/ul (4.8-10.8)
[2024-03-28 05:05] LABS: BUN Creatinine Ratio 26.4 (10-20); Calcium 7.4 mg/dl (8.6-10.3); Creatinine Clr Calc Pharmacy 16.3 ml/min; Est GFR (African American) 12.5 ml/min; Est GFR (Non-African American) 10.8 ml/min; Potassium 4.2 mmol/L (3.5-5.1)
--- NOTE | 2024-03-28 09:41 | Nephrology Progress Note ---
Date of Service March 28, 2024 Assessment & Plan Admission and Anticipated Discharge Date Admission Date: March 25, 2024 Subjective Assessment & Plan (1) SALLY (acute kidney injury): I do not have previous baseline kidney function to compare. However a creatinine of 8.5 is almost certainly higher than her baseline and would qualify as acute kidney injury and is associated with hyperkalemia and metabolic acidosis. At this time the most likely etiology of acute kidney injury is acute tubular necrosis in the setting of sepsis with low blood pressure. patient was on olmesartan which does not help in this situation. However does not appear she was taking any NSAIDs or diuretics prior to hospitalization. given that creatinine has come down quite a bit in less than a day I do not feel we have to do workup for glomerular nephritis. Current clinical situation with sepsis low blood pressure and low oxygen saturation on admission is very consistent with acute tubular necrosis as the diagnosis. Her urinary finding is also consistent with ATN. --- I also had discussion with the patient that her current blood work is very abnormal and there is still some chance that she may need dialysis. Although given sig renal recovery chances are low but not out of danger 100% totally. No dialysis needed today and will assess daily. Good urine out put and creat trending down but still high at 3+ and BUN of 100 So far no e/o fluid overload despite getting lot of IVF. Can give iv lasix 40 mg if needed if she gets SOB Will stop Lokelma now. Stop Bicarb drip now as it is 29 She is eating and drinking so no need of iv fluids. (2) Sepsis: patient had very elevated white count with low blood pressure. Now better and is out of ICU. She is currently on broad-spectrum aztreonam and daptomycin. Urine C/s is +ve for GNR Blood C/ negative. she also has extensive skin lesions in the lower e xtremity which could be the source of infection. (3) Acute hyperkalemia: potassium on admission was 6.9 and with medical management of Lokelma and bicarb drip it has come down to normal. Will stop Lokelma now. Stop bicarb drip now, S---patient doing better. better BP and Good urine output and labs getting better, Physical Exam Physical Exam: General- Not in acute distress. awake alert and answers basic questions but seemed to have difficulty answering difficult health related questions Neck- supple, no JVD Lungs- clear to auscultation , no wheezing or crackles Heart- regular rate and rhythm; no murmur, no gallop. Abdomen- soft, nontender Extremities- b/l gross lower extremity edema present with distal erythema and superficial skin ulcers which were bandaged. Results & Data Vital Signs (Past 12 Hours) Vital Signs Temp Pulse Pulse Resp BP Pulse Ox O2 Del Method 03/28/24 08:18 36.7 C 76 20 112/56 L 95 Room Air 03/28/24 08:06 77 03/28/24 04:14 36.5 C 76 20 112/68 96 Room Air 03/28/24 00:04 36.5 C 84 20 116/64 96 Room Air 03/27/24 22:49 79
[2024-03-28] MEDS ORDERED: bisacodyL 10 MG SUPP PR PRN (10:37)
--- NOTE | 2024-03-28 10:37 | Hospitalist Progress Note ---
Date of Service March 28, 2024 Assessment & Plan (1) Acute kidney injury (SALLY) with acute tubular necrosis (ATN): (2) Bilateral lower leg cellulitis: (3) Acute UTI (urinary tract infection): (4) Hypomagnesemia: (5) Septic shock: (6) Iron deficiency anemia: (7) Hypothyroidism: Plan Patient presented with acute septic shock and acute kidney injury due to UTI and cellulitis. Significantly improving. Communication with nephrology, continue to avoid nephrotoxins, no need for any additional IV fluids/bicarb drip Okay to MedSurg Transition to oral antibiotics for UTI and cellulitis Therapies Continue to monitor renal function Communication with case management, working on rehab placement Trial of Reglan for nausea with meals, suspect may have a component of gastroparesis Phone conversation with patient's sister Verena-updated to patient's condition Admission and Anticipated Discharge Date Admission Date: March 25, 2024 Subjective Patient sitting up in chair. Reports some nausea and dizziness but does report eating some breakfast. Physical Exam Physical Exam: Constitutional: Alert, obese, sitting in chair HEENT: Mucous membranes moist. Lungs: Decreased breath sounds, no wheezes, no rales CV: S1-S2, regular Abdomen: Soft, nontender, nondistended Extremities: Chronic dependent edema, sick scaly dermatitis lower extremities, cellulitis less red, less warm, improving Neuro: No focal deficits, generalized weakness Psych: Cooperative, normal mood Results & Data Results & Data Vital Signs (Past 12 Hours) Vital Signs Temp Pulse Pulse Resp BP Pulse Ox O2 Del Method 03/28/24 08:18 36.7 C 76 20 112/56 L 95 Room Air 03/28/24 08:06 77 03/28/24 04:14 36.5 C 76 20 112/68 96 Room Air 03/28/24 00:04 36.5 C 84 20 116/64 96 Room Air 03/27/24 22:49 79 Diagnostic Findings Reviewed imaging, laboratory and diagnostic studies. Pertinent findings as below. WBCs 15.1 improving Hemoglobin 8.3, stable Creatinine 3.8 significantly improved Urine culture E. coli, sensitivities noted
[2024-03-28] MEDS ORDERED: DAPTOmycin 500 MG in SYRINGE 0 ML IV SCH (12:00)
[2024-03-28] MEDS: METOCLOPRAMIDE HCL 5 MG TABLET PO SCH (12:14)
[2024-03-28] MEDS: PROMETHAZINE 6.25 MG/50.25 ML BAG IV STA (14:28)
[2024-03-28] MEDS: MECLIZINE HCL 25 MG TAB PO PRN (14:28)
--- NOTE | 2024-03-28 17:26 | CT Scan Report ---
HEAD CT NONCONTRAST CT DOSE: 1760.66 mGy.cm HISTORY: dizzy TECHNIQUE: Multiaxial CT images of the head were performed without the use of intravenous contrast. A utomated exposure control was utilized for this study. A dose lowering technique was utilized adheri ng to the principles of ALARA. Comparison: None. Findings: Mild motion artifact. The paranasal sinuses and mastoid air cells are clear. The calvarium and skull base are intact. The ventricles and sulci are within normal limits. There is no mass, hemat mehran, midline shift, or acute infarct. Impression: Mild motion artifact. No definite acute intracranial abnormality. ACT 112: Negative or not required by law. Electronically signed by: Humberto Melissa M.D. 03/28/2024 5:24 PM
[2024-03-28] MEDS: DOXYCYCLINE HYCLATE 100 MG CAP PO SCH (20:27)
[2024-03-28] MEDS: cephALEXin 500 MG CAP PO SCH (20:28)
[2024-03-29 07:50] LABS: BUN Creatinine Ratio 29.2 (10-20); Calcium 6.9 mg/dl (8.6-10.3); Est GFR (Non-African American) 14.7 ml/min; Potassium 4.6 mmol/L (3.5-5.1)
--- NOTE | 2024-03-29 08:18 | Nephrology Progress Note ---
Date of Service March 29, 2024 Assessment & Plan (1) SALLY (acute kidney injury): Plan: slowly improving nonliguric presume stage 3 SALLY attributed to ischemic ATN from sepsis. No baseline creatinine available. Presented with creatinine 8.5 w/ hyperkalemia and metabolic acidosis. And w/ hx of OP olmesartan use. Urine sediment also c/w ATN. No obstruction or acute process on admission renal imaging, though she does have BL nephrolithiasis. Clinically improving; no indication for GN w/u or bx. Urine cx w/ E coli; blood cxs negative -daily BMP -current antibiotics of keflex and doxycycline; previously on aztreonam and daptomycin -continue to hold olmesartan -no acute indication for dialysis (2) Sepsis: Plan: presented w/ markedly elevated white count with low blood pressure, treated w/ broad-spectrum abtx, attributed to UTI. she also p/w extensive skin lesions in the lower extremity which could be the source of infection. (3) Acute hyperkalemia: Plan: potassium on admission was 6.9 and resloved w/ supportive care. -now off of bicarb and lokelma Admission and Anticipated Discharge Date Admission Date: March 25, 2024 Subjective ongoing generalized weakness; no c/o pain or sob or new/worrisome voiding sx Review of Systems 2 Review of Systems: All systems reviewed & are unremarkable except as noted in Subjective Physical Exam 2 Constitutional: well developed (sitting in bed on RA, 1 person asst to lean forward for lung exam), well nourished, + morbidly obese and cooperative; no acute distress Neck: + nuchal rigidity Respiratory: normal respiratory effort Auscultation: lungs clear to auscultation bilaterally and + diminished lung sounds Cardiovascular: Rate/Rhythm: regular rate (HS distant) and regular rhythm E xtremities: + edema (at very most trac; BLE wrapped distally) Musculoskeletal: Extremities: strength 5/5 throughout Neurologic: horton, fluent speech, no tremor Results & Data Vital Signs (Past 12 Hours) Vital Signs Temp Pulse Resp BP Pulse Ox O2 Del Method 03/29/24 08:04 36.8 C 81 16 109/66 90 Room Air 03/28/24 20:57 36.6 C 75 20 110/70 94 Room Air Laboratory Results 03/28/24 03:43 03/29/24 06:56
[2024-03-29] MEDS: CALCIUM CARBONATE 1,250 MG/5 ML UDC PO SCH (11:37)
--- NOTE | 2024-03-29 18:03 | Hospitalist Progress Note ---
Date of Service March 29, 2024 Assessment & Plan (1) Acute kidney injury (SALLY) with acute tubular necrosis (ATN): (2) Bilateral lower leg cellulitis: (3) Acute UTI (urinary tract infection): (4) Hypomagnesemia: (5) Septic shock: (6) Iron deficiency anemia: (7) Hypothyroidism: Plan MS Carbajal is a 73-year-old female with past medical history significant for morbid obesity, hypertension and hypothyroidism comes because of shortness of breath and lower extremity edema and found to have SALLY and hyperkalemia. Patient briefly admitted to ICU for hypotension, but luckily did not require pressor support. Patient Cr peaked at 8.45 and down to 2.98 this am. #Acute renal failure #Metabolic acidosis #Azotemia s/p bicarb drip no acute indication for dialysis Nephrology following, continue to follow Cr. #hypotension continue midrodrine #severe sepsis #Acute complicated cystitis e coli 03/25 on Keflex BI/doxycycline #Vitamin D deficiency #Hypocalcemia start po vit d q7d and calcium supplement s/p iv ca calculated, ionized 0.96 Trend ionized ca #Hypothyroidism TSH 1.5 continue levothyroxine heparin sq DVT ppx Admission and Anticipated Discharge Date Admission Date: March 25, 2024 Subjective NAEO reports feeling well overall, feels weak getting to bedside chair but no new concerns Physical Exam Constitutional: WD/WN, vitals as above Respiratory: normal respiratory effort, lungs clear to auscultation Cardiovascular: rrr Musculoskeletal: nonpitting edema BLE, chronic stasis changes Results & Data Results & Data Vital Signs (Past 12 Hours) Vital Signs Temp Pulse Resp BP Pulse Ox O2 Del Method 03/29/24 16:22 36.5 C 69 17 118/70 95 Room Air 03/29/24 10:39 Room Air 03/29/24 08:04 36.8 C 81 16 109/66 90 Room Air Laboratory Results [facility] 03/29/24 06:56 Sodium 142 Potassium 4.6 Chloride 106 Carbon Dioxide 30 BUN 87 H Creatinine 2.98 H D Glucose 78 Calcium 6.9 L Medications Administered Home Medications Medication Instructions Recorded Confirmed Last Taken levothyroxine 88 mcg tablet 88 mcg PO DAILY 03/26/24 03/26/24 Unknown olmesartan 40 mg tablet 40 mg PO DAILY 03/26/24 03/26/24 Unknown Active Medications Generic Name Dose Route Start Last Admin Trade Name Lei PRN Reason Stop Dose Admin Acetaminophen 650 mg 03/26/24 00:34 03/29/24 09:51 Acetaminophen 325 Mg Tab PO 04/25/24 00:33 650 mg Q4H PRN Administration Pain or Fever Calcium Carbonate 1,250 mg 03/29/24 09:00 03/29/24 11:37 Calcium Carbonate 1,250 Mg/5 Ml Udc PO 04/28/24 08:59 1,250 mg BID ARMANDO Administration Cephalexin HCl 500 mg 03/28/24 21:00 03/29/24 09:51 Cephalexin 500 Mg Cap PO 04/07/24 20:59 500 mg BID ARMANDO Administration Protocol Doxycycline Hyclate 100 mg 03/28/24 21:00 03/29/24 09:52 Doxycycline Hyclate 100 Mg Cap PO 04/04/24 20:59 100 mg BID ARMANDO Administration Levothyroxine Sodium 88 mcg 03/27/24 06:30 03/29/24 06:12 Levothyroxine Sodium 88 Mcg Tablet PO 04/26/24 06:29 88 mcg DAILYBB ARMANDO Administration Magnesium Oxide 400 mg 03/26/24 09:00 03/29/24 09:51 Magnesium Oxide 400 Mg Tab PO 03/31/24 08:59 400 mg BID ARMANDO Administration Meclizine HCl 25 mg 03/28/24 12:55 03/28/24 14:28 Meclizine Hcl 25 Mg Tab PO 04/27/24 12:54 25 mg Q6H PRN Administration Dizziness or Vertigo Metoclopramide HCl 5 mg 03/28/24 11:30 03/29/24 17:36 Metoclopramide Hcl 5 Mg Tablet PO 04/27/24 11:29 5 mg ACHS ARMANDO Administration Midodrine 10 mg 03/26/24 17:00 03/29/24 17:36 Midodrine Hcl 10 Mg Tab PO 04/25/24 16:59 10 mg TID@0800,1200,1700 ARMANDO Administration Ondansetron HCl 4 mg 03/27/24 09:01 03/28/24 12:33 Ondansetron Inj 2 Mg/Ml 2 Ml Vial IV 04/26/24 09:00 4 mg Q6H PRN Administration Nausea And Vomiting
[2024-03-29] MEDS: ERGOCALCIFEROL 1250 MCG (50,000 UNITS) CAP PO SCH (19:28)
[2024-03-29] MEDS: CALCIUM GLUCONATE 1,000 MG/60 ML BAG IV STA (19:29)
[2024-03-29] MEDS: HEPARIN SOD 5,000 UNIT/0.5 ML VIAL SQ SCH (19:59)
[2024-03-30 06:05] LABS: Hematocrit (blood only) 26.4 % (37.0-47.0); Hemoglobin 8.3 g/dl (12.0-16.0); Mean Corpuscular Hemoglobin 30.7 pg (25.0-34.0); Mean Corpuscular Hgb Conc 31.4 g/dL (32.0-36.0); Mean Corpuscular Volume 97.8 fL (80.0-100.0); Mean Platelet Volume 9.6 fL (9.4-12.4); Platelet Count 215 K/uL (130-400); RDW Coefficient of Variation 14.3 % (11.5-14.5); RDW Standard Deviation 51.1 fL (36.4-46.3); White Blood Count 12.48 K/ul (4.8-10.8)
[2024-03-30 06:21] LABS: BUN Creatinine Ratio 28.2 (10-20); Calcium 7.1 mg/dl (8.6-10.3); Creatinine Clr Calc Pharmacy 22.1 ml/min; Est GFR (African American) 18.1 ml/min; Est GFR (Non-African American) 15.6 ml/min; Magnesium 1.7 mg/dl (1.7-2.4); Phosphorus 2.6 mg/dl (2.5-4.9); Potassium 4.4 mmol/L (3.5-5.1)
[2024-03-30] MEDS: CALCIUM GLUCONATE 1,000 MG/60 ML BAG IV SCH (10:33)
--- NOTE | 2024-03-30 14:10 | Hospitalist Progress Note ---
Date of Service March 30, 2024 Assessment & Plan (1) Acute kidney injury (SALLY) with acute tubular necrosis (ATN): (2) Bilateral lower leg cellulitis: (3) Acute UTI (urinary tract infection): (4) Hypomagnesemia: (5) Septic shock: (6) Iron deficiency anemia: (7) Hypothyroidism: Plan MS Carbajal is a 73-year-old female with past medical history significant for morbid obesity, hypertension and hypothyroidism comes because of shortness of breath and lower extremity edema and found to have SALLY and hyperkalemia. Patient briefly admitted to ICU for hypotension, but luckily did not require pressor support. Patient Cr peaked at 8.45 and down to 2.98 this am. #Acute renal failure #Metabolic acidosis #Azotemia s/p bicarb drip no acute indication for dialysis Nephrology following, continue to follow Cr. continue to hold olmesartan #hypotension continue midrodrine #severe sepsis #LLE wounds #Acute complicated cystitis e coli 03/25 on Keflex and doxycycline Nursing dressing LLE #Vitamin D deficiency #Hypocalcemia continue po vit d q7d and calcium supplement s/p iv ca calculated, ionized 0.96 Trend ionized ca #Hypothyroidism TSH 1.5 continue levothyroxine heparin sq DVT ppx likely pending placement Admission and Anticipated Discharge Date Admission Date: March 25, 2024 Subjective Sitting in bedside chair, reports feeling "better today than any other day" States she does hope to move around more, but knows she is weak Denies any chest pain, sob, worsening swelling, or acute concerns Physical Exam Constitutional: WD/WN, vitals as above Respiratory: normal respiratory effort, lungs clear to auscultation Cardiovascular: rrr Musculoskeletal: chronic nonpitting edema with stasis changes, kerlex on LLE Results & Data Results & Data Vital Signs (Past 12 Hours) Vital Signs Temp Pulse Resp BP Pulse Ox O2 Del Method 03/30/24 07:03 37.1 C 85 16 121/71 92 Room Air Laboratory Results Short CBC 03/30/24 Range/Units 05:39 WBC 12.48 H (4.8-10.8) K/ul Hgb 8.3 L (12.0-16.0) g/dl Hct 26.4 L (37.0-47.0) % Plt Count 215 (130-400) K/uL BMP 03/30/24 05:39 Sodium 140 Potassium 4.4 Chloride 104 Carbon Dioxide 30 BUN 80 H Creatinine 2.84 H Glucose 81 Calcium 7.1 L Medications Administered Home Medications Medication Instructions Recorded Confirmed Last Taken levothyroxine 88 mcg tablet 88 mcg PO DAILY 03/26/24 03/26/24 Unknown olmesartan 40 mg tablet 40 mg PO DAILY 03/26/24 03/26/24 Unknown Active Medications Generic Name Dose Route Start Last Admin Trade Name Lei PRN Reason Stop Dose Admin Acetaminophen 650 mg 03/26/24 00:34 03/29/24 09:51 Acetaminophen 325 Mg Tab PO 04/25/24 00:33 650 mg Q4H PRN Administration Pain or Fever Calcium Carbonate 1,250 mg 03/29/24 09:00 03/30/24 08:23 Calcium Carbonate 1,250 Mg/5 Ml Udc PO 04/28/24 08:59 1,250 mg BID ARMANDO Administration Cephalexin HCl 500 mg 03/28/24 21:00 03/30/24 08:24 Cephalexin 500 Mg Cap PO 04/07/24 20:59 500 mg BID ARMANDO Administration Protocol Doxycycline Hyclate 100 mg 03/28/24 21:00 03/30/24 08:24 Doxycycline Hyclate 100 Mg Cap PO 04/04/24 20:59 100 mg BID ARMANDO Administration Ergocalciferol 1,250 mcg 03/29/24 18:00 03/29/24 19:28 Ergocalciferol 1250 Mcg (50,000 Units) Cap PO 04/28/24 17:59 1,250 mcg Q7D ARMANDO Administration Heparin Sodium (Porcine) 5,000 units 03/29/24 22:00 03/30/24 05:52 Heparin Sod 5,000 Unit/0.5 Ml Vial SQ 04/28/24 21:59 5,000 units Q8 ARMANDO Administration Levothyroxine Sodium 88 mcg 03/27/24 06:30 03/30/24 05:53 Levothyroxine Sodium 88 Mcg Tablet PO 04/26/24 06:29 88 mcg DAILYBB ARMANDO Administration Magnesium Oxide 400 mg 03/26/24 09:00 03/30/24 08:24 Magnesium Oxide 400 Mg Tab PO 03/31/24 08:59 400 mg BID ARMANDO Administration Meclizine HCl 25 mg 03/28/24 12:55 03/28/24 14:28 Meclizine Hcl 25 Mg Tab PO 04/27/24 12:54 25 mg Q6H PRN Administration Dizziness or Vertigo Metoclopramide HCl 5 mg 03/28/24 11:30 03/30/24 11:42 Metoclopramide Hcl 5 Mg Tablet PO 04/27/24 11:29 5 mg ACHS ARMANDO Administration Midodrine 10 mg 03/26/24 17:00 03/30/24 11:42 Midodrine Hcl 10 Mg Tab PO 04/25/24 16:59 10 mg TID@0800,1200,1700 ARMANDO Administration Ondansetron HCl 4 mg 03/27/24 09:01 03/28/24 12:33 Ondansetron Inj 2 Mg/Ml 2 Ml Vial IV 04/26/24 09:00 4 mg Q6H PRN Administration Nausea And Vomiting
[2024-03-30] MEDS: ALBUT/IPRATROP 3MG/0.5MG NEB 3 ML VIAL NEB STA (20:19)
[2024-03-30] MEDS: ALBUT/IPRATROP 3MG/0.5MG NEB 3 ML VIAL NEB PRN (20:20)
[2024-03-30 20:46] LABS: Influenza A virus by PCR Negative (Neg); Influenza B virus by PCR Negative (Neg); RSV by PCR Negative (Neg); SARS CoV2 RNA(COVID-19) Ceph NEGATIVE (Negative)
[2024-03-30] MEDS: MAGNESIUM SULFATE / D5W 1 GM/100 ML BAG IV ONE (21:08)
--- NOTE | 2024-03-31 06:51 | XRay Report ---
XR chest 1V portable HISTORY: 73 years-old Female wheeze acute shortness of breath COMPARISON: 03/25/2024 TECHNIQUE: AP view of the chest FINDINGS: Cardiac silhouette is enlarged. Pulmonary vascular congestion. No pneumothorax. Trace blunting of the costophrenic angles redemonstrated with mild subsegmental bibasilar opacities suggestive of atelecta sis. IMPRESSION: 1. Cardiomegaly with pulmonary vascular congestion. 2. Bibasilar atelectasis with equivocal trace pleural effusions. ACT 112: Negative or not required by law. The above report was generated using voice recognition software. It may contain grammatical, syntax o r spelling errors. Electronically signed by: Radu Patel M.D. 03/31/2024 6:50 AM
[2024-03-31 08:34] LABS: Hematocrit (blood only) 30.3 % (37.0-47.0); Hemoglobin 9.2 g/dl (12.0-16.0); Mean Corpuscular Hemoglobin 30.7 pg (25.0-34.0); Mean Corpuscular Hgb Conc 30.4 g/dL (32.0-36.0); Mean Platelet Volume 9.5 fL (9.4-12.4); Platelet Count 236 K/uL (130-400); RDW Coefficient of Variation 14.5 % (11.5-14.5); RDW Standard Deviation 53.8 fL (36.4-46.3)
[2024-03-31 08:51] LABS: BUN Creatinine Ratio 26.4 (10-20); Calcium 7.7 mg/dl (8.6-10.3); Creatinine Clr Calc Pharmacy 24.7 ml/min; Est GFR (African American) 20.7 ml/min; Est GFR (Non-African American) 17.8 ml/min; Magnesium 1.8 mg/dl (1.7-2.4); Potassium 4.3 mmol/L (3.5-5.1)
--- NOTE | 2024-03-31 13:31 | Hospitalist Progress Note ---
Date of Service March 31, 2024 Assessment & Plan (1) Acute kidney injury (SALLY) with acute tubular necrosis (ATN): (2) Bilateral lower leg cellulitis: (3) Acute UTI (urinary tract infection): (4) Hypomagnesemia: (5) Septic shock: (6) Iron deficiency anemia: (7) Hypothyroidism: Plan Patient continuing to improve. Renal function is improving. Continue antibiotics through tomorrow to complete a 7-day course Patient's baseline renal function unknown. May potentially be approaching her baseline Continue therapies Communication with care management, pursuing rehab placement, care management spoke with daughter to discuss options. Continue other current medications, appears patient continues to require midodrine we will continue to monitor. Admission and Anticipated Discharge Date Admission Date: March 25, 2024 Subjective Patient feeling much better. Doing well. Was in and out of bed. Physical Exam Physical Exam: Constitutional: Alert HEENT: Mucous membranes moist. Lungs: Clear to auscultation, decreased, no wheezes rales or rhonchi CV: S1-S2, regular Abdomen: Soft, nontender, nondistended Extremities: Chronic edema. Derm: Lower extremity cellulitis significantly improved, wounds are healing. Redness, tenderness, warmth resolved, Neuro: No focal deficits, generalized weakness Psych: Cooperative, normal mood Results & Data Results & Data Vital Signs (Past 12 Hours) Vital Signs Temp Pulse Resp BP Pulse Ox O2 Del Method 03/31/24 07:40 36.6 C 80 16 80/50 L 94 Room Air Diagnostic Findings Reviewed imaging, laboratory and diagnostic studies. Pertinent findings as below. Hemoglobin 9.2, WBCs 13.0 Creatinine 2.54, slightly improved
--- NOTE | 2024-03-31 19:20 | Nephrology Progress Note ---
Date of Service March 31, 2024 Assessment & Plan (1) SALLY (acute kidney injury): Plan: gradually improving nonliguric presume stage 3 SALLY attributed to ischemic ATN from sepsis. No baseline creatinine available. Presented with creatinine 8.5 w/ hyperkalemia and metabolic acidosis. And w/ hx of OP olmesartan use. managed medically; no dialysis required this admission. Urine sediment also c/w ATN. No obstruction or acute process on admission renal imaging, though she does have BL nephrolithiasis. Clinically improving; no indication for GN w/u or bx. Urine cx w/ E coli; blood cxs negative creatinine down to 2.5 today, better -daily BMP -current antibiotics of keflex and doxycycline; previously on aztreonam and daptomycin -continue to hold olmesartan (2) Sepsis: Plan: presented w/ markedly elevated white count with low blood pressure, treated w/ broad-spectrum abtx, attributed to UTI. she also p/w extensive skin lesions in the lower extremity which could be the source of infection. BP has improved; WBC still elevated at 13K but improving Admission and Anticipated Discharge Date Admission Date: March 25, 2024 Subjective using incentive spirometer; less dizzy; she is noticing a little wheezing. seen on late afternoon rounds. pt status reviewed with Dr Larry a few times through the day Review of Systems 2 Review of Systems: All systems reviewed & are unremarkable except as noted in Subjective Physical Exam 2 Constitutional: well developed (sitting up in chair on RA, on her own can lean forward for lung exam), well nourished, + morbidly obese and cooperative; no acute distress Neck: + nuchal rigidity Respiratory: normal respiratory effort Auscultation: + wheezes (exp w/ prolonged exp phase) Cardiovascular: Rate/Rhythm: regular rate (HS distant) and regular rhythm E xtremities: + edema (at very most trac; BLE wrapped distally) Musculoskeletal: Extremities: strength 5/5 throughout Results & Data Vital Signs (Past 12 Hours) Vital Signs Temp Pulse Resp BP Pulse Ox O2 Del Method 03/31/24 15:12 36.7 C 74 16 112/61 93 Room Air 03/31/24 07:40 36.6 C 80 16 80/50 L 94 Room Air Laboratory Results 03/31/24 07:38 03/31/24 07:38
[2024-03-31 22:04] VITALS: RESP 20
[2024-04-01 07:29] VITALS: PULSE 77; TEMP 98.4; O2SAT 96
[2024-04-01 07:51] LABS: Calcium 7.7 mg/dl (8.6-10.3); Potassium 4.4 mmol/L (3.5-5.1)
[2024-04-01 07:57] LABS: BUN Creatinine Ratio 26.2 (10-20); Creatinine Clr Calc Pharmacy 27.9 ml/min; Est GFR (African American) 23.9 ml/min; Est GFR (Non-African American) 20.7 ml/min
--- NOTE | 2024-04-01 08:56 | Nephrology Progress Note ---
Date of Service April 01, 2024 Assessment & Plan (1) SALLY (acute kidney injury): Plan: gradually improving nonliguric presume stage 3 SALLY attributed to ischemic ATN from sepsis. No baseline creatinine available. Presented with creatinine 8.5 w/ hyperkalemia and metabolic acidosis. And w/ hx of OP olmesartan use. managed medically; no dialysis required this admission. Urine sediment also c/w ATN. No obstruction or acute process on admission renal imaging, though she does have BL nephrolithiasis. Clinically improving; no indication for GN w/u or bx. Urine cx w/ E coli; blood cxs negative Anemia stable w/ hgb 9.2 yesterday; t sat 11% as of 03/26; not approrpiate to start iron load w/ rip roaring infection but now can start po as below creatinine plateau'd past 48 hrs -daily BMP -current antibiotics of keflex and doxycycline > to complete one week course today; previously on aztreonam and daptomycin -continue to hold olmesartan >on high dose midodrine currently >> monitor for chance to lower dose NEPHRO D/C RECS -hospital d/c appt w/ me in [facility] in 2 wks with bmp, acr, cbc/d, t sat, phos, uacm, PTH, 25OHD to be ordered by neph nurse and drawn no more than 72 hrs before appt -recommend facility monitor bmp at least weekly x 3 -recommend d/c on po iron + vitamin C bid -low threshold to lower midodrine to 5 mg tid and down titrate further if SBP sustained > 120 -avoid NSAIDS D/c recs regarding Fe suppl and midodrine dosing, lab recs and planned f/u reviewed w/ Dr Blake by [employer]; we are in agreement. (2) Sepsis: Plan: presented w/ markedly elevated white count with low blood pressure, treated w/ broad-spectrum abtx, attributed to UTI. she also p/w extensive skin lesions in the lower extremity which could be the source of infection. BP has improved; WBC still as of yesterday elevated at 13K but overall improving (3) Iron deficiency anemia: Plan: as above Admission and Anticipated Discharge Date Admission Date: March 25, 2024 Subjective no interval events overnight clinically. anxious about d/c but also excited. notes some wheezing w/ breathing still; no n/v; still tired but napping for this; edema unchanged Review of Systems 2 Review of Systems: All systems reviewed & are unremarkable except as noted in Subjective Physical Exam 2 Constitutional: well developed (lying in bed on RA), well nourished, + morbidly obese and cooperative; no acute distress Respiratory: normal respiratory effort Auscultation: lungs clear to auscultation bilaterally, + diminished lung sounds and + wheezes (exp) Cardiovascular: Rate/Rhythm: regular rate (HS distant) and regular rhythm E xtremities: + edema (at very most trace; BLE wrapped distally) Musculoskeletal: Extremities: strength 5/5 throughout Results & Data Vital Signs (Past 12 Hours) Vital Signs Temp Pulse Resp BP Pulse Ox O2 Del Method 04/01/24 07:59 Room Air 04/01/24 07:26 36.9 C 77 20 142/80 H 96 Room Air 03/31/24 21:56 36.7 C 81 20 137/72 94 Room Air 03/31/24 21:14 74 18 94 Room Air 03/31/24 21:00 Room Air Laboratory Results 03/31/24 07:38 04/01/24 07:12
--- NOTE | 2024-04-01 10:32 | Discharge Summary ---
Discharge Summary Date of Service April 01, 2024 Principal Dx & Hospital Course #1 = Principal Diagnosis (1) Acute kidney injury (SALLY) with acute tubular necrosis (ATN): (2) Bilateral lower leg cellulitis: (3) Acute UTI (urinary tract infection): (4) Hypomagnesemia: (5) Septic shock: (6) Iron deficiency anemia: (7) Hypothyroidism: Plan Patient 73-year-old female who rarely sees a physician presenting to the emergency room at the request of her sister with multiple issues. In the emergency room. That she had a cellulitis and urinary tract infection that sepsis criteria. Patient was admitted to the hospital given some fluid resuscitation and started on broad-spectrum IV antibiotics for UTI and cellulitis. Over the next 24 hours patient's blood pressure did not respond to fluid resuscitation and briefly transferred to the ICU for additional monitoring. It was decided to treat her hypotension with midodrine. This was effective in addition to ongoing IV fluids. Patient had acute kidney injury with a creatinine over 8 and hyperkalemia at the time of admission. This was aggressively treated. With hydration her renal function improved. Nephrology consultation was obtained. They continued recommend holding all nephrotoxins and daily monitoring of her creatinine.Her urine culture grew out E. coli that was pansensitive. Cellulitis of lower extremity significantly improved. She was transition to oral antibiotics. She was seen by physical therapy and Occupational Therapy. And her activity was increased. She definitely required a significant amount of assistance and was determined that she was unable to return home due to her to her severely deconditioned state. Case management was involved. In discussion with the family and the patient applications were sent for rehab facilities. Through the course of her hospitalization her renal function steadily improved. Infection cleared. She was seen by wound care and the cellulitis and wounds of the lower extremity continued to improve throughout her hospitalization. On the day of discharge her vital signs are stable. Creatinine had improved again. Wounds were clean. She essentially was completing a course of antibiotics here in the hospital and only needed additional 2 doses of antibiotics. Should be discharged to [facility] for ongoing care and rehabilitation. Her sister was updated to the plan of care and in agreement. I continue to monitor renal function as an outpatient. Continue to avoid nephrotoxins. Continue with wound care. Notes For Next Care Provider Physical therapy and Occupational Therapy Consider BMP in 7 to 10 days Avoid nephrotoxins Continue wound care for bilateral lower extremity wounds Consider multi layer compression therapy when able. Medication Changes From Visit Keflex and doxycycline for additional 2 doses Olmesartan discontinued due to acute kidney injury Midodrine for blood pressure support Bowel regimen Admission HPI Per Admitting Provider 73-year-old female with past medical history significant for morbid obesity, hypertension and hypothyroidism comes because of shortness of breath and lower extremity edema and found to have SALLY and hyperkalemia. Patient states since last 1 months she is getting short of breath which is progressively worsening. And last 6 months having lower extremity edema and also pain in the legs. She is living with her sister for last 14 years. She ambulates with a cane and sister thinks she may need walker. She goes to primary care doctor once a year for regular checkup and medication refills but last time she saw PCP was more than a year ago. Sister states she is on levothyroxine and olmesartan and they do not know the doses but sister says she can call tomorrow to give the doses. And patient uses Tylenol for pain and per her sister patient uses Tums frequ ently but does not use any other medications. Patient is alert and oriented. In the ER her was oxygen saturation varying low 90s and 80s and on 2 L she saturating okay. Seems comfortable. She always have headaches. She is feeling lightheaded lately. Vision is okay. No earache or runny nose or sore throat. No cough. Afebrile. No difficulty swallowing. Denies any chest pain. Was nauseous earlier. No abdominal pain. Normal bowel movements. Micturating okay per patient. Denies any blood in the urine. Denies blood in the stools. Past medical history. As mentioned above Past surgical history. Appendectomy and tonsillectomy Social history. Quit smoking 22 years ago. Smoked 2 packs a day for more than 20 years. Quit alcohol 22 years ago. Family history. Father had heart disease. Disease from thoracic aneurysm. Mother had bladder cancer. Admission Exam Per Admitting Provider See H&P Discharge Exam Constitutional: Alert, morbidly obese HEENT: Mucous membranes moist. Lungs: Clear to auscultation, decreased, no wheezes rales or rhonchi CV: S1-S2, regular Abdomen: Soft, nontender, nondistended Extremities: Chronic lower extremity edema at baseline, dressings over lower extremity ulcerations clean and dry Neuro: No focal deficits Psych: Cooperative, normal mood Updated Medication List Medication Instructions Recorded Confirmed Type olmesartan 40 mg tablet 40 mg PO DAILY 03/26/24 03/26/24 History acetaminophen 325 mg tablet 650 mg (2 x 325 mg) PO Q4H PRN 04/01/24 Rx fever or pain #100 tabs calcium carbonate 500 mg/5 mL (as 1,250 mg (12.5 mL) PO BID #60 mL 04/01/24 Rx calcium carb 1,250 mg/5 mL) oral suspension cephalexin 500 mg capsule 500 mg PO BID #2 caps 04/01/24 Rx doxycycline hyclate 100 mg capsule 100 mg PO BID #2 caps 04/01/24 Rx ergocalciferol (vitamin D2) 1,250 1,250 mcg PO Q7D #30 caps 04/01/24 Rx mcg (50,000 unit) capsule ferrous sulfate 325 mg (65 mg 325 mg PO BID #60 tabs 04/01/24 Rx iron) tablet (Feosol) ipratropium 0.5 mg-albuterol 3 mg 3 ml NEB Q2H PRN shortness of 04/01/24 Rx (2.5 mg base)/3 mL nebulization breath or wheezing #180 mL soln levothyroxine 88 mcg tablet 88 mcg PO DAILY #30 tabs 04/01/24 Rx metoclopramide HCl 5 mg tablet 5 mg PO ACHS #120 tabs 04/01/24 Rx midodrine 10 mg tablet 10 mg PO TID@0800,1200,1700 #90 04/01/24 Rx tabs polyethylene glycol 3350 17 gram 17 g PO DAILY #30 ea 04/01/24 Rx oral powder packet (Miralax) Hospital Stay Data Consultations 03/25/24 21:18 ED Decision to Admit Stat 03/26/24 08:00 Consult Nephrology Routine 03/26/24 13:01 Consult Rn Document Improvement Specialist Routine Diagnostic Imagining Performed 03/25/24 19:10 US venous doppler LE BI Stat 03/25/24 21:03 CT Abd and Pelvis [CT abd pelvis wo con] Stat 03/28/24 12:56 CT head/brain wo con Routine Reviewed imaging, laboratory and diagnostic studies. Pertinent findings as below. Urine culture grew out E. coli pansensitive Blood culture no growth to date Creatinine 2.25, significantly improved Electrolytes within normal range Hemoglobin 9.2 Vitamin D less than 7 TSH 1.5 iron 20 TIBC 183 Trans ferritin 11% Pending Results Patient Have Any Pending Studies at Discharge: No Discharge Instructions Given to Patient (Per Discharging Provider) Continue with physical therapy and Occupational Therapy Continue with wound care on bilateral lower extremities, may benefit at some point from compression therapy Total Time Total Time Spent Total Time Spent (In Minutes): 40
[2024-04-01 11:10] VITALS: BP 90/46
== END 2024-04-01 12:45 | DRG 871 ==
LOC: EDBD → ED 18:02 → 2E 20:42 → SUATTDRO 22:08 → 1E 03-26 12:52 → 2W 03-27 09:13 → 3N 03-29 14:06